=== PATIENT | male | born 1955 | race Caucasian/White ===

== ENCOUNTER 2018-10-08 21:20 | Emergency (ER) | payer OTHER ==
[~2018-10-08] VITALS: Wt 68.2 kg
[~2018-10-08 21:20] MED LIST: BENZ2TAB7 PO; HYDR-3980 PO; LEVO500T10 PO; PHEN-538 PO
[2018-10-08] MEDS ORDERED: KETOROLAC 15 MG INJ IV STA (22:52)
[2018-10-08] MEDS ORDERED: SOD CHLORIDE 0.9% 1,000 ML IV STA (22:52)
[2018-10-08] MEDS ORDERED: DIAZEPAM 5 MG/ML SYG IV ONE (23:00)
--- NOTE | 2018-10-09 02:04 | ERD ---
ER Documentation Chief Complaint Chief Complaint WEAKNESS/ PAIN IN LEFT LEG X'S 1 DAY HPI This is a 62-year-old male with a past medical history of hyperlipidemia, schizophrenia, tobacco abuse, chronic ambulatory dysfunction for which he is supposed to utilize a walker but instead utilizes a cane, frequent falls who is presenting this evening with cramping and spasm of his left lower extremity, beginning this afternoon. According to the patient's family, the patient does not take care of himself. He has a poor appetite. He drinks 4 cups of coffee a day. He does not drink water. He smokes half a pack to a pack of cigarettes daily. Over the last month, the patient has seemed more fatigued than usual per the family. The patient does not endorse this to, but the family notes that he is stubborn. He initially did not want to come to the emergency department, but he ultimately agreed when he was not able to resolve the spasm at home on his own. The patient denies feeling sick recently. The patient denies fever or chills. The patient has had no headache or vision changes. The patient does not endorse neck or back pain. The patient denies lightheadedness or dizziness. The patient has had no chest pain or trouble breathing. The patient denies nausea or vomiting. The patient denies abdominal pain. The patient denies changes to bowel movements or urination. The patient has had no focal deficits. The patient has had no weakness or numbness or tingling to the face or extremities. ROS All systems reviewed and are negative except as per history of present illness. Medications Home Meds Active Scripts Levofloxacin* (Levofloxacin*) 500 Mg Tablet, 500 MG PO DAILY for UTI, sepsis , #10 TAB Prov:BETH HAWTHORNE MD 06/19/16 Phenazopyridine Hcl* (Pyridium*) 200 Mg Tab, 200 MG PO TID PRN for URINARY PAIN, #6 TAB Prov:TORIBIO MEDINA PA-C 06/16/16 Hydrocodone/Acetaminophen ([place] 10-325 Tablet) 1 Each Tablet, 1 TAB PO Q6H PRN for PAIN, #12 TAB Prov:TORIBIO MEDINA PA-C 06/16/16 Reported Medications Benztropine Mesylate* (Benztropine Mesylate*) 2 Mg Tablet, 2 MG PO BID, TAB 06/18/16 Allergies Allergies: Coded Allergies: No Known Allergy (Unverified , 06/17/16) PMhx/Soc History of Surgery: No Anesthesia Reaction: No Hx Neurological Disorder: No Hx Respiratory Disorders: No Hx Cardiac Disorders: Yes (Hyperlipidemia) Hx Psychiatric Problems: Yes (Schizophrenia) Hx Miscellaneous Medical Probl: No Hx Alcohol Use: No Hx Substance Use: No Hx Tobacco Use: Yes Smoking Status: Current every day smoker FmHx Family History: No diabetes Physical Exam Vitals Vital Signs Date Temp Pulse Resp B/P (MAP) Pulse Ox O2 O2 Flow FiO2 Time Delivery Rate 10/09/18 102 18 168/96 98 Room Air 00:38 (120) 10/09/18 102 20 156/92 98 Room Air 00:15 (113) 10/08/18 105 22 156/95 98 Room Air 22:15 (115) 10/08/18 98.2 105 18 174/95 99 21:29 (121) Physical Exam Const: No apparent distress, well-developed, well-nourished Head: Normocephalic, Atraumatic Eyes: Normal Conjunctiva. Extraocular movements intact. Pupils equal, round and reactive to light ENT: Normal External Ears, Nose and Mouth. Neck: Full range of motion. No meningismus. Resp: Clear to auscultation bilaterally, No wheezes, rales or rhonchi Cardio: Regular rate and rhythm. No murmurs, rubs or gallops Abd: Soft, non tender, non distended. Normal bowel sounds Skin: No petechiae or rashes Back: No midline tenderness. No CVA tenderness Ext: No cyanosis, or edema. Intermittent left lower extremity cramping/spasm. Neur: Awake and alert, oriented 4. Cranial nerves intact. No facial droop. Normal strength, sensation and coordination. Psych: Normal Mood and Affect Result Diagram: 10/08/18 23010/08/18 230 Results 24 hrs Laboratory Tests Test 10/08/18 23:05 10/09/18 00:05 White Blood Count 8.8 10^3/ul Red Blood Count 3.55 10^6/ul Hemoglobin 11.3 g/dl Hematocrit 32.7 % Mean Corpuscular Volume 92.1 fl Mean Corpuscular Hemoglobin 31.8 pg Mean Corpuscular Hemoglobin Concent 34.6 g/dl Red Cell Distribution Width 12.3 % Platelet Count 256 10^3/UL Mean Platelet Volume 9.6 fl Immature Granulocytes % 0.500 % Neutrophils % 64.5 % Lymphocytes % 23.4 % Monocytes % 9.6 % Eosinophils % 1.7 % Basophils % 0.3 % Nucleated Red Blood Cells % 0.0 /100WBC Immature Granulocytes # 0.040 10^3/ul Neutrophils # 5.6 10^3/ul Lymphocytes # 2.1 10^3/ul Monocytes # 0.8 10^3/ul Eosinophils # 0.2 10^3/ul Basophils # 0.0 10^3/ul Nucleated Red Blood Cells # 0.0 10^3/ul Prothrombin Time 12.4 Sec Prothrombin Time Ratio 1.0 INR International Normalized Ratio 0.91 Sodium Level 133 mmol/L Potassium Level 3.3 mmol/L Chloride Level 96 mmol/L Carbon Dioxide Level 30 mmol/L Anion Gap 7 Blood Urea Nitrogen 16 mg/dl Creatinine 0.84 mg/dl Est Glomerular Filtrat Rate mL/min > 60 mL/min Glucose Level 119 mg/dl Calcium Level 9.1 mg/dl Troponin I < 0.012 ng/ml Urine Color STRAW Urine Clarity CLEAR Urine pH 7.0 Urine Specific [place] 1.004 Urine Ketones NEGATIVE mg/dL Urine Nitrite NEGATIVE mg/dL Urine Bilirubin NEGATIVE mg/dL Urine Urobilinogen NEGATIVE mg/dL Urine Leukocyte Esterase NEGATIVE Josh/ul Urine Microscopic RBC 15 /HPF Urine Microscopic WBC 1 /HPF Urine Hemoglobin 2+ mg/dL Urine Glucose NEGATIVE mg/dL Urine Total Protein NEGATIVE mg/dl Current Medications Medications Dose Sig/Bashir Start Time Status Last (Trade) Ordered Route PRN Stop Time Admin Dose Reason Admin Sodium 1,000 ml @ Q1H STAT 10/08/18 DC 10/08/18 Chloride 1,000 mls/hr IV 22:52 23:00 10/08/18 23:51 Ketorolac 15 mg ONCE STAT 10/08/18 DC 10/08/18 Tromethamine IV 22:52 23:00 (Toradol) 10/08/18 22:55 Diazepam 5 mg ONCE ONCE 10/08/18 DC 10/08/18 (Valium) IV 23:00 22:59 10/08/18 23:01 Procedures/MDM MDM The patient's presentation warrants further investigation. Previous medical records, if available, were reviewed. LABS The patient's laboratory testing was obtained and reviewed. No emergent treatment was required unless described below. CBC: No E/o of systemic infection or thrombocytopenia. Normocytic anemia, nonemergent. BMP: No E/o severe acidosis or alkalosis or renal failure or diabetic ketoac idosis. Mild hyponatremia and hypokalemia, nonemergent. PT/INR: No E/o significant coagulopathy Troponin: No E/o acute ischemia Urine: No E/o acute infection. + Hematuria EKG EKG read by me: Rate/Rhythm: Regular rate and rhythm at a rate of 94 bpm Intervals: Normal [place]: Normal Impression: No evidence of acute ischemia or arrhythmia IMAGING Imaging and Radiology interpretation reviewed. CXR FINDINGS: LUNGS: No consolidative pulmonary infiltrates noted. PLEURAL SPACE: Unremarkable. No pneumothorax. HEART: Unremarkable. No cardiomegaly. MEDIASTINUM: Unremarkable. BONES/JOINTS: Degenerative spine changes are noted. IMPRESSION: 1. No consolidative pulmonary infiltrates noted. 2. There is no significant interval change from the previous study. Electronically viewed and signed by Yanni Caba Physician Pnp on 10/09/2018 00:13 CT Head FINDINGS: LIMITATIONS: The study is limited by mild patient motion artifact. BRAIN: Unremarkable. No hemorrhage. No significant white matter disease. No edema. VENTRICLES: Unremarkable. No ventriculomegaly. BONES/JOINTS: Unremarkable. No acute fracture. SOFT TISSUES: Unremarkable. SINUSES: Unremarkable as visualized. No acute sinusitis. MASTOID AIR CELLS: Unremarkable as visualized. No mastoid effusion. IMPRESSION: 1. The study is limited by mild patient motion artifact. 2. No acute intracranial abnormality demonstrated. Electronically viewed and signed by Yanni Caba Physician Pnp on 10/09/2018 00:16 TREATMENT/DISPOSITION The patient's presenting with exacerbation of chronic symptoms. The patient is on multiple medications and polypharmacy could certainly be related to today. That said, the patient does appear to be of sound mind. His primary complaint is spasming of the left lower extremity. The patient does appear dehydrated clinically. The patient was given IV fluids in the emergency department. For the pain and spasm specifically, the patient was given 15 mg of Toradol in addition to 5 mg of diazepam. The patient's symptoms significantly improved after treatment. The patient also endorses general fatigue. The acuity of his fatigue is unclear. The patient has a reassuring physical exam. The patient is not clinically orthostatic. The patient is not dizzy. I have decreased suspicion for vertigo. The patient has no signs of emergent or symptomatic anemia. The patient does have a mild hyponatremia and hypokalemia, but there are no emergent abnormalities. I have low suspicion for either of these findings to be the etiology of his symptoms today. I have decrease suspicion for a thyroid disorder. The patient is not toxic appearing. I have decreased suspicion for an infectious etiology of symptoms. The patient's EKG and troponin are reassuring. I have low suspicion for acute coronary syndrome. I do not see evidence of any emergent cardiac arrhythmia, which includes but is not limited to heart block, Brugada syndrome or WPW. The patient has no heart murmurs or rales. There is no evidence of cardiomegaly on exam or chest xray. I have low suspicion for hypertrophic cardiomyopathy. I do not see evidence of CHF. The patient does not endorse any chest or pleuritic pain. The history is negative for bleeding or clotting disorders. The patient has not been involved in any recent prolonged trips or surgeries or hospi talizations. The patient has no calf tenderness or swelling. I have decreased suspicion for PE as the etiology of symptoms. The patient has no focal deficits. The neurologic exam is reassuring. I have decreased suspicion for cerebral ischemia. There was no trauma or injury. There is no personal or family history of cerebral aneurysm. I have decreased suspicion for SAH or other ICH. I have low suspicion for temporal arteritis, cavernous venous thrombosis, subdural hematoma, epidural hematoma, meningitis. Unfortunately, the patient does have difficulty walking at baseline. He is supposed to use a walker, but he typically refuses and only utilizes a cane. While walking to the bathroom, the patient's knees buckled and he had a ground- level fall. The patient had no serious injury. The patient was reassessed. He did not hit his head. I do not feel that further diagnostic testing is re quired. I highly recommended that the patient utilize his walker at home. The patient was ambulatory after this incident without significant difficulty. The patient was found to have hematuria. The patient does not have flank pain. I have low suspicion for nephrolithiasis. This may be worked up further in an outpatient setting. Upon reevaluation of the patient, symptoms have improved. No emergent diagnoses were identified. At this time, I feel that the patient stable for discharge. The patient was instructed to follow-up with a primary care physician in 1-3 days. The patient will be given strict precautions with which to return to the emergency department. Prescriptions: None The patient's blood pressure was elevated at greater than 120/80 while in the emergency department. The patient was otherwise stable with no evidence of hypertensive urgency or emergency. The patient does not require admission for blood pressure control. I have discussed with the patient the risks of hypertension. I have instructed the patient to return to the ER for any new or worsening symptoms including chest pain, shortness of breath, headache, blurred vision, confusion, nausea, vomiting or LOC. I have advised the patient to follow up with the primary care physician for outpatient monitoring and treatment for hypertension in 1-3 days. Disclaimer: Inadvertent spelling and grammatical errors are likely due to EHR/dictation software use and do not reflect on the overall quality of patient care. Note that the electronic time recorded on this note does not necessarily reflect the actual time of the patient encounter. Departure Diagnosis: Primary Impression: Muscle spasm Additional Impressions: Chronic fatigue Ambulatory dysfunction Normocytic anemia Hypokalemia Hyponatremia Hematuria Hematuria type: unspecified type Qualified Codes: R31.9 - Hematuria, unspecified Condition: Stable ZOILA DE LA TORRE MD Oct 09, 2018 01:26
[2018-10-09 02:20] VITALS: BP 145/91; PULSE 82; RESP 20
== END 2018-10-09 02:30 | disposition home or self-care (01) ==
LOC: E/R 21:20
DX: M62.838 Other muscle spasm (principal); R53.82 Chronic fatigue, unspecified; D64.9 Anemia, unspecified; R26.2 Difficulty in walking, not elsewhere classified; E87.6 Hypokalemia; E87.1 Hypo-osmolality and hyponatremia; H31.9 Unspecified disorder of choroid; R40.2142 Coma scale, eyes open, spontaneous, at arrival to emergency department; R40.2362 Coma scale, best motor response, obeys commands, at arrival to emergency department; R40.2252 Coma scale, best verbal response, oriented, at arrival to emergency department; F17.210 Nicotine dependence, cigarettes, uncomplicated; R93.0 Abnormal findings on diagnostic imaging of skull and head, not elsewhere classified; M79.605 Pain in left leg
CPT/HCPCS: 36415; 70450; 71045; 80048; 81001; 84484; 85025; 85610; 93005; 96374; 96375; J1885; J3360; J7030; Z7502; Z7610

== ENCOUNTER 2018-10-31 21:36 | Inpatient (IN) | payer OTHER ==
[~2018-10-31] VITALS: Ht 180.3 cm; Wt 81.8 kg
[2018-10-31 21:50] VITALS: Ht 180.3 cm; Wt 81.8 kg
[2018-10-31] MEDS ORDERED: SOD CHLORIDE 0.9% 500 ML IV STA (22:04)
[2018-10-31] MEDS ORDERED: ATOR20TA65 PO (23:58)
[2018-10-31] MEDS ORDERED: IBUP-1542 PO (23:58)
[2018-10-31] MEDS ORDERED: ASPI-817 PO (23:58)
[2018-11-01] MEDS ORDERED: LORAZEPAM 2 MG INJ IV STA (03:04)
--- NOTE | 2018-11-01 03:58 | ERD ---
ER Documentation Chief Complaint Chief Complaint BIB RA881 from home,gen weakness for months,hx schizo,amb w/ walker HPI This is a 63-year-old male brought in from home for generalized weakness has been getting progressively worse. Apparently over the past few days being very very weak and he feels like he does not have the strength to get out of bed. He denies any focal neurological complaints. He normally ambulates with a walker but says that they have not proven difficult. Denies any fevers or chills. Denies any other current issues. ROS All systems reviewed and are negative except as per history of present illness. Medications Home Meds Reported Medications Aspirin* (Aspirin* EC) 81 Mg Tablet.dr, 81 MG PO DAILY for 90 Days, #90 10/31/18 Ibuprofen* (Ibuprofen*) 600 Mg Tablet, 600 MG PO Q6H PRN for PAIN LEVEL 6-10, TAB 10/31/18 Atorvastatin Calcium (Atorvastatin Calcium) 20 Mg Tablet, 20 MG PO QHS for 90 Days, #90 10/31/18 Discontinued Reported Medications Benztropine Mesylate* (Benztropine Mesylate*) 2 Mg Tablet, 2 MG PO BID, TAB 06/18/16 Discontinued Scripts Levofloxacin* (Levofloxacin*) 500 Mg Tablet, 500 MG PO DAILY for UTI, sepsis , #10 TAB Prov:BETH HAWTHORNE MD 06/19/16 Phenazopyridine Hcl* (Pyridium*) 200 Mg Tab, 200 MG PO TID PRN for URINARY PAIN, #6 TAB Prov:TORIBIO MEDINA PA-C 06/16/16 Hydrocodone/Acetaminophen ([place] 10-325 Tablet) 1 Each Tablet, 1 TAB PO Q6H PRN for PAIN, #12 TAB Prov:TORIBIO MEDINA PA-C 06/16/16 Allergies Allergies: Coded Allergies: No Known Allergy (Unverified , 10/31/18) PMhx/Soc History of Surgery: No Anesthesia Reaction: No Hx Neurological Disorder: No Hx Respiratory Disorders: No Hx Cardiac Disorders: Yes (Hyperlipidemia) Hx Psychiatric Problems: Yes (Schizophrenia) Hx Miscellaneous Medical Probl: No Hx Alcohol Use: No Hx Substance Use: No Hx Tobacco Use: Yes Smoking Status: Current every day smoker Physical Exam Vitals Vital Signs Date Temp Pulse Resp B/P (MAP) Pulse Ox O2 O2 Flow FiO2 Time Delivery Rate 11/01/18 98.1 92 18 148/95 97 Room Air 03:15 (112) 11/01/18 98.1 82 24 147/89 97 Room Air 02:00 (108) 11/01/18 98.1 82 17 155/96 99 Room Air 00:00 (115) 10/31/18 98.1 86 18 160/93 97 21:50 (115) 10/31/18 98.1 92 18 160/93 97 Room Air 21:50 (115) Physical Exam Const: No acute distress Head: Atraumatic Eyes: Normal Conjunctiva ENT: Normal External Ears, Nose and Mouth. Neck: Full range of motion. No meningismus. Resp: Clear to auscultation bilaterally Cardio: Regular rate and rhythm, no murmurs Abd: Soft, non tender, non distended. Normal bowel sounds Skin: No petechiae or rashes Back: No midline or flank tenderness Ext: No cyanosis, or edema Neur: Awake and alert Psych: Normal Mood and Affect Result Diagram: 10/31/18225010/31/182250 Results 24 hrs Laboratory Tests Test 10/31/18 22:51 White Blood Count 9.9 10^3/ul Red Blood Count 3.66 10^6/ul Hemoglobin 11.6 g/dl Hematocrit 33.8 % Mean Corpuscular Volume 92.3 fl Mean Corpuscular Hemoglobin 31.7 pg Mean Corpuscular Hemoglobin Concent 34.3 g/dl Red Cell Distribution Width 12.4 % Platelet Count 239 10^3/UL Mean Platelet Volume 9.2 fl Immature Granulocytes % 0.400 % Neutrophils % 61.8 % Lymphocytes % 25.0 % Monocytes % 10.0 % Eosinophils % 2.3 % Basophils % 0.5 % Nucleated Red Blood Cells % 0.0 /100WBC Immature Granulocytes # 0.040 10^3/ul Neutrophils # 6.1 10^3/ul Lymphocytes # 2.5 10^3/ul Monocytes # 1.0 10^3/ul Eosinophils # 0.2 10^3/ul Basophils # 0.1 10^3/ul Nucleated Red Blood Cells # 0.0 10^3/ul Prothrombin Time 12.2 Sec Prothrombin Time Ratio 1.0 INR International Normalized Ratio 0.89 Activated Partial Thromboplast Time 36.1 Sec Sodium Level 137 mmol/L Potassium Level 3.4 mmol/L Chloride Level 98 mmol/L Carbon Dioxide Level 28 mmol/L Anion Gap 11 Blood Urea Nitrogen 7 mg/dl Creatinine 0.69 mg/dl Est Glomerular Filtrat Rate mL/min > 60 mL/min Glucose Level 104 mg/dl Calcium Level 8.9 mg/dl Troponin I < 0.012 ng/ml Current Medications Medications Dose Sig/Bashir Start Time Status Last (Trade) Ordered Route PRN Stop Time Admin Dose Reason Admin Sodium 500 ml @ Q1H STAT 10/31/18 DC 10/31/18 Chloride 500 mls/hr IV 22:04 22:30 10/31/18 23:03 Lorazepam 1 mg ONCE STAT 11/01/18 DC 11/01/18 (Ativan) IV 03:04 03:10 11/01/18 03:05 Procedures/MDM Emergency department course: Patient seen and evaluated triage nurse. Placed in bed from evaluation as a cardiac workup. Had a stat head CT. Serial exams remained stable. Diagnostic data: EKG: Rate/Rhythm: [Normal Sinus Rhythm] QRS, ST, T-waves: [No changes consistent w/ acute ischemia] Impression: [No evidence of ischemia or arrhythmia] Chest X-ray 1V Interpreted by me: Soft Tissue: No acute abnormalities Bones: No acute abnormalities Mediastinum/Cardiac Silhouette/Lungs: [No acute abnormalities] Medical decision making: This is a 63-year-old male comes in with generalized weakness. Although he is nonfocal neurologically, given his severe debilitation, patient will be admitted for further evaluation and management. Dr. Mckee of [facility] is on-call and has been notified of the patient's admission. Departure Diagnosis: Primary Impression: Acute weakness Condition: RANDALL Cowan Nov 01, 2018 03:58
--- NOTE | 2018-11-01 14:25 | QN ---
Documentation Comment seen and examined COURTNEY HORTON MD Nov 01, 2018 14:25
[2018-11-01] MEDS ORDERED: ACETAMINOPHEN 325 MG TAB PO PRN (14:30)
[2018-11-01] MEDS ORDERED: NACL 0.9% 3 ML SYG IV SCH (14:30)
[2018-11-01] MEDS ORDERED: DOCUSATE SODIUM 100 MG CAP PO PRN (14:30)
[2018-11-01] MEDS ORDERED: ONDANSETRON 4 MG INJ IV PRN (14:30)
--- NOTE | 2018-11-01 15:37 | HP ---
DATE OF ADMISSION: 10/31/2018 REASON FOR ADMISSION: Brought in from home, generalized weakness for months, worsening for past 1 mo [facility]. HISTORY OF PRESENT ILLNESS: This is a 63-year-old male with a past medical history of schizophrenia, history of chronic ambulatory dysfunction, history of hypertension, who lives at home with his brittny hook. According to the mother, patient has been complaining of some spasm and weakness of the left arm. Lately, patient had been falling a lot. The minute he gets up he falls. 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 He also has history of schizophrenia and receive s monthly injection with psychiatry as an outpatient. Patient had no headache, no dizziness, sometim es has neck pain and was brought in to the Emergency Department for further evaluation. He normally ambulates with a walker but has been having difficulties recently. On arrival to ED, vital signs adeola wed a temperature 98.1, pulse 92, respirations 18, initial blood pressure 160/93, saturating 97%. Po tassium was 3.4, BUN of 7, creatinine 0.69. White count 9.9, hemoglobin 11.6, platelet count 239. P atient was given EKG, showed normal sinus rhythm. Patient also had CT of the head which was pending and was admitted for further management. PAST MEDICAL HISTORY: 1. Schizophrenia. 2. Hypertension. 3. History of chronic ambulatory dysfunction. 4. Hypercholesterolemia. ALLERGIES: None. PAST SURGICAL HISTORY: According to the mom, the patient had spine surgeries x2, status post fall. SOCIAL HISTORY: He is a chronic smoker, smokes 20 cigarettes per day. Denies any alcohol or any rec reational drug use. Currently lives at home with mom, but however, need help in all his daily living . MEDICATIONS TAKING AT HOME: 1. Atorvastatin 20. 2. Aspirin 81. 3. Ibuprofen 600 mg p.o. q.6 p.r.n. pain. FAMILY HISTORY: Noncontributory. REVIEW OF SYSTEMS: The patient is a very limited historian, states that he has spasm on the left arm . Denied any headache, any nausea, vomiting, diarrhea, any chest pain, any shortness of breath, any hematemesis, any melena, any blood per rectum. Denies any other complaints except for falling. PHYSICAL EXAMINATION: VITAL SIGNS: Blood pressure 148/95, temperature 98.1, pulse 92, saturating 97% on room air. GENERAL: The patient is well-developed male, does not appear to be in any acute distress. NECK: Supple, no JVD. HEART: Regular rate and rhythm. LUNGS: Clear to auscultate bilaterally. ABDOMEN: Soft, nontender, nondistended, positive normoactive bowel sounds. EXTREMITIES: No local clubbing, cyanosis or edema. SKIN: However, patient has multiple bruises present in the arms and legs. The patient also has a ri ght knee abrasion status post fall, some knee swelling noted on bilateral knees. DIAGNOSTIC DATA: Potassium of 3.4. Troponin less than 0.012. LABORATORY DATA: White count is 9.9, hemoglobin 11.6, platelet count 239. EKG: No acute ST-T wave changes. The patient had a CT of the brain on 10/08/2018, which was negative; however, the repeat CA T scan is pending. ASSESSMENT AND PLAN: This is a 63-year-old male who presented with: 1. Multiple falls with some left side arm muscle spasm. Need to rule out if there is any spinal dis ease/past concerns or patient's history and exam is somewhat limited due to his history of schizophre osmin and being a poor historian. 2. History of schizophrenia. 3. Mild hypokalemia. 4. Arthritis. 5. Hypertension. 6. Hyperlipidemia. PLAN: At this period of time, the patient is admitted to med-surg. We will check orthostatics. We will check a CT of the C-spine. Neurology consultation has been obtained. Patient will also need a PT eval. Rest of the treatment will depend on the patient's hospitalization course. Dictated By: COURTNEY MCCARTHY/KAIN Conf#: [id number] DID#: [id number]
--- NOTE | 2018-11-01 17:23 | CONS ---
Assessment/Plan Assessment/Plan Hospital Course 63 yo M with hx of gait instability and other comorbidities who presents for evaluation of lower extremity weakness, for which neurology is consulted. Most ominously concerning for a thoracic myelopathy. A lumbosacral radiculopathy is additionally considered. P: MRI T/L spine without contrast for further characterization Consider neurosurgery evaluation pending the above. Other medical management per primary Will follow clinically Consultation Date/Type/Reason Admit Date/Time Type of Consult Neurology Reason for Consultation repeated falls, myelopathy Requesting Provider: COURTNEY HORTON MD Date/Time of Note DATE: 11/01/18 TIME: 17:23 Hx of Present Illness 63 yo M with hx of schizophrenia, chronic gait dysfunction and other comorbidities who presented to the ED for evaluation of lower extremity weakness. History was obtained from pt and chart review. The pt states that he's had progressive weakness x 1 month with repeated falls. He states that he normally ambulates with assistive devices at home, but continues to fall despite using them. He also states that his LLE is weaker than his right. It is additionally elsewhere noted: HISTORY OF PRESENT ILLNESS: This is a 63-year-old male with a past medical history of schizophrenia, history of chronic ambulatory dysfunction, history of hypertension, who lives at home with his mother. According to the mother, patient has been complaining of some spasm and weakness of the left arm. Late ly, patient had been falling a lot. The minute he gets up he falls. 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 He also has history of schizophrenia and receives monthly injection with psychiatry as an outpatient. Patient had no headache, no dizziness, sometimes has neck pain and was brought in to the Emergency Department for further evaluation. He normally ambulates with a walker but has been having difficulties recently. On arrival to ED, vital signs showed a temperature 98.1, pulse 92, respirations 18, initial blood pressure 160/93, saturating 97%. Potassium was 3.4, BUN of 7, creatinine 0.69. White count 9.9, hemoglobin 11.6, platelet count 239. Patient was given EKG, showed normal sinus rhythm. Patient also had CT of the head which was pending and was admitted for further management. negative unless noted otherwise in HPI Exam/Review of Systems Exam Vitals Vital Signs Date Temp Pulse Resp B/P (MAP) Pulse Ox O2 O2 Flow FiO2 Time Delivery Rate 11/01/18 98.2 74 18 157/89 98 Room Air 16:25 (111) Exam PE: Gen Appearance: No Apparent Distress HEENT: Normocephalic Cardiovascular: Regular rate Lungs: Clear bilaterally Abdomen: Soft Extremities: Dry NE: The patient was alert and grossly oriented. Language was normal. Fund of knowledge was normal. Pupils were equal and reactive to light. There was no afferent pupillary defect. Visual barillas were normal. Funduscopic examination was limited. Extra-ocular movements were full. Ptosis was absent. There was no nystagmus. Facial sensation was normal. Face was symmetric with normal strength. Hearing was intact. Palate movements were normal. Neck strength was normal. There was normal tongue bulk and speed of movement. Tone was normal. Muscle bulk was normal. I did not see fasciculations. Arms were strong in the UE, symmetrically. Hip flexors were weak symmetrically; flexion/extension of lower extremities plantar flexion/dorsiflexion of the ankles were weak (L>R). Vibration sensation was normal. Temperature and pinprick sensation was normal. Rapid alternating movements were normal. There was no dysmetria. There was no intention tremor. Gait was deferred due to bedrest. Arm reflexes were 2+ and symmetric; leg reflexes were brisk on the LLE. Mackenzie's sign was absent. Plantar responses were flexor. Results Result Diagram: 10/31/18225010/31/182250 Results 24hrs Laboratory Tests Test 10/31/18 22:51 11/01/18 09:38 White Blood Count 9.9 Red Blood Count 3.66 L Hemoglobin 11.6 L Hematocrit 33.8 L Mean Corpuscular Volume 92.3 Mean Corpuscular Hemoglobin 31.7 Mean Corpuscular Hemoglobin Concent 34.3 Red Cell Distribution Width 12.4 Platelet Count 239 Mean Platelet Volume 9.2 Immature Granulocytes % 0.400 Neutrophils % 61.8 Lymphocytes % 25.0 Monocytes % 10.0 Eosinophils % 2.3 Basophils % 0.5 Nucleated Red Blood Cells % 0.0 Immature Granulocytes # 0.040 H Neutrophils # 6.1 Lymphocytes # 2.5 Monocytes # 1.0 H Eosinophils # 0.2 Basophils # 0.1 Nucleated Red Blood Cells # 0.0 Prothrombin Time 12.2 Prothrombin Time Ratio 1.0 INR International Normalized Ratio 0.89 Activated Partial Thromboplast Time 36.1 H Sodium Level 137 Potassium Level 3.4 L Chloride Level 98 Carbon Dioxide Level 28 Anion Gap 11 Blood Urea Nitrogen 7 Creatinine 0.69 Est Glomerular Filtrat Rate mL/min > 60 Glucose Level 104 Calcium Level 8.9 Troponin I < 0.012 Lab Scanned Report LAB Imaging Imaging CT C spine: IMPRESSION: 1. No acute fracture identified. 2. Multilevel degenerative disc and facet disease, with moderate to severe disc height loss at C5-C6 and moderate at C6-C7. 3. Multilevel disc osteophyte complexes resulting in multilevel spinal canal stenosis, likely moderate and C3-C4, severe at C4-C5, moderate to severe at C5- C6, and moderate at C6-C7. 4. Multilevel uncovertebral joint spurring and facet arthropathy resulting in significant multilevel neural foraminal narrowing, severe bilaterally at C5-C6, severe right and moderate to severe left at C6-C7, moderate to severe left and at least moderate right at C4-C5. Additional levels as above. 5. MRI may be obtained for further evaluation if not contraindicated. Medications Medication Current Medications IV Flush (NS 3 ml) 3 ml PER PROTOCOL IV ; Start 11/01/18 at 14:30 Ondansetron HCl (Zofran Inj) 4 mg Q6H PRN IV NAUSEA/VOMITING; Start 11/01/18 at 14:30 Acetaminophen (Tylenol Tab) 650 mg Q6H PRN PO .PAIN 1-3 OR TEMP; Start 11/01/18 at 14:30 Acetaminophen/ Hydrocodone Bitart ([place] (5/325)) 1 tab Q6H PRN PO .MOD PAIN 4- 6; Start 11/01/18 at 14:30 Docusate Sodium (Colace) 100 mg Q12H PRN PO .CONSTIPATION; Start 11/01/18 at 14:30 Enoxaparin Sodium (Lovenox) 40 mg DAILY SC ; Start 11/02/18 at 09:00 Aspirin (Halfprin) 81 mg DAILY PO ; Start 11/02/18 at 09:00 Atorvastatin Calcium (Lipitor) 20 mg QHS PO ; Start 11/01/18 at 21:00 Past Medical History reviewed Home Meds Reported Medications Aspirin* (Aspirin* EC) 81 Mg Tablet.dr, 81 MG PO DAILY for 90 Days, #90 3/18/19 Ibuprofen* (Ibuprofen*) 600 Mg Tablet, 600 MG PO Q6H PRN for PAIN LEVEL 6-10, TAB 10/31/18 Atorvastatin Calcium (Atorvastatin Calcium) 20 Mg Tablet, 20 MG PO QHS for 90 Days, #90 10/31/18 Discontinued Reported Medications Benztropine Mesylate* (Benztropine Mesylate*) 2 Mg Tablet, 2 MG PO BID, TAB 06/18/16 Discontinued Scripts Levofloxacin* (Levofloxacin*) 500 Mg Tablet, 500 MG PO DAILY for UTI, sepsis , #10 TAB Prov:BETH HAWTHORNE MD 06/19/16 Phenazopyridine Hcl* (Pyridium*) 200 Mg Tab, 200 MG PO TID PRN for URINARY PAIN, #6 TAB Prov:TORIBIO MEDINA PA-C 06/16/16 Hydrocodone/Acetaminophen ([place] 10-325 Tablet) 1 Each Tablet, 1 TAB PO Q6H PRN for PAIN, #12 TAB Prov:TORIBIO MEDINA PA-C 06/16/16 Medications Current Medications IV Flush (NS 3 ml) 3 ml PER PROTOCOL IV ; Start 11/01/18 at 14:30 Ondansetron HCl (Zofran Inj) 4 mg Q6H PRN IV NAUSEA/VOMITING; Start 11/01/18 at 14:30 Acetaminophen (Tylenol Tab) 650 mg Q6H PRN PO .PAIN 1-3 OR TEMP; Start 11/01/18 at 14:30 Acetaminophen/ Hydrocodone Bitart ([place] (5/325)) 1 tab Q6H PRN PO .MOD PAIN 4- 6; Start 11/01/18 at 14:30 Docusate Sodium (Colace) 100 mg Q12H PRN PO .CONSTIPATION; Start 11/01/18 at 14:30 Enoxaparin Sodium (Lovenox) 40 mg DAILY SC ; Start 11/02/18 at 09:00 Aspirin (Halfprin) 81 mg DAILY PO ; Start 11/02/18 at 09:00 Atorvastatin Calcium (Lipitor) 20 mg QHS PO ; Start 11/01/18 at 21:00 Allergies: Coded Allergies: No Known Allergy (Unverified , 10/31/18) Past Surgical History reviewed Social History reviewed Smoking Status: Current every day smoker MY RUCKER NP Nov 01, 2018 17:23 OSCAR MCCLELLAND Nov 01, 2018 19:37
[2018-11-01 17:50] VITALS: BP 167/82; PULSE 62; RESP 20
[2018-11-01 19:28] VITALS: BP 155/92; PULSE 90; RESP 18
[2018-11-01] MEDS: ATORVASTATIN 20 MG TAB PO SCH (20:24)
[2018-11-01] MEDS: HYDROCODONE/APAP (5/325) TAB PO PRN (20:24)
[2018-11-02 07:19] VITALS: BP 157/87; PULSE 98; RESP 16
[2018-11-02] MEDS ORDERED: ENOXAPARIN 40 MG/0.4 ML SYG SC SCH (09:00)
[2018-11-02] MEDS ORDERED: ASPIRIN (EC) 81 MG TAB PO SCH (09:00)
[2018-11-02] MEDS ORDERED: POTASSIUM CHLORIDE (SR) 20 MEQ TAB PO STA (13:24)
[2018-11-02 13:51] VITALS: BP 164/81; PULSE 95; RESP 16
[2018-11-02] MEDS ORDERED: LORAZEPAM 2 MG INJ IV ONE (14:00)
--- NOTE | 2018-11-02 14:08 | PN ---
Date/Time of Note Date/Time of Note DATE: 11/02/18 TIME: 14:02 Assessment/Plan VTE Prophylaxis Risk score (from Ns)>0 risk: 3 SCD applied (from Ns): No SCD contraindicated: low risk/ambulating Pharmacological prophylaxis: NA/contraindicated Pharm contraindication: low risk/ambulating Lines/Catheters IV [facility]from [facility]): Saline Lock Assessment/Plan Hospital Course 63-year-old male who presented with: 1. Multiple falls with some left side arm muscle spasm. Need to rule out if there is any spinal disease/past concerns or patient's history and exam is somewhat limited due to his history of schizophrenia and being a poor historian. 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 A lumbosacral radiculopathy is additionally considered 2. History of schizophrenia. 3. Mild hypokalemia. 4. Arthritis. 5. Hypertension. 6. Hyperlipidemia. Plan - MRI C/T/L spine - ativan prn - Dr Busby neurosurgery consulted - pain control - PT - Pscy consult - [facility] neuro recs - GI/DVT prophylaxsis Result Diagram: 11/02/1842711/02/188 Results 24hrs Laboratory Tests Test 11/01/18 17:55 11/01/18 21:50 11/02/18 04:28 Creatine Kinase 451 H 492 H Creatine Kinase Index 0.7 0.7 Creatinine Kinase MB (Mass) 3.34 H 3.67 H Troponin I < 0.012 < 0.012 White Blood Count 11.3 H Red Blood Count 3.92 L Hemoglobin 12.1 L Hematocrit 36.0 L Mean Corpuscular Volume 91.8 Mean Corpuscular Hemoglobin 30.9 Mean Corpuscular Hemoglobin Concent 33.6 Red Cell Distribution Width 12.7 Platelet Count 271 Mean Platelet Volume 9.6 Immature Granulocytes % 0.400 Neutrophils % 65.3 Lymphocytes % 23.1 Monocytes % 9.0 Eosinophils % 1.8 Basophils % 0.4 Nucleated Red Blood Cells % 0.0 Immature Granulocytes # 0.040 H Neutrophils # 7.4 Lymphocytes # 2.6 Monocytes # 1.0 H Eosinophils # 0.2 Basophils # 0.0 Nucleated Red Blood Cells # 0.0 Sodium Level 139 Potassium Level 3.0 L Chloride Level 95 L Carbon Dioxide Level 30 Anion Gap 14 H Blood Urea Nitrogen 12 Creatinine 0.74 Est Glomerular Filtrat Rate mL/min > 60 Glucose Level 97 Calcium Level 9.1 Phosphorus Level 4.6 Magnesium Level 1.9 Subjective 24 Hr Interval Summary Free Text/Dictation he did complain of lower back pain. Spoke to the family at bedside and answered all the questions Exam/Review of Systems Exam Vitals Vital Signs Date Temp Pulse Resp B/P (MAP) Pulse Ox O2 O2 Flow FiO2 Time Delivery Rate 11/02/18 98.6 95 16 164/81 98 13:51 (108) 11/01/18 Room Air 17:50 Intake and Output 11/01/18 11/01/18 11/02/18 1515:00 23:00 07:00 OutputOutput Total 500 ml BalanceBalance -500 ml Exam GENERAL: The patient is well-developed male, does not appear to be in any acute distress. NECK: Supple, no JVD. HEART: Regular rate and rhythm. LUNGS: Clear to auscultate bilaterally. ABDOMEN: Soft, nontender, nondistended, positive normoactive bowel sounds. EXTREMITIES: No local clubbing, cyanosis or edema. SKIN: However, patient has multiple bruises present in the arms and legs. The patient also has a right knee abrasion status post fall, some knee swelling noted on bilateral knees. Arm reflexes were 2+ and symmetric; leg reflexes were brisk on the LLE. Tone was normal. Muscle bulk was normal. Hip flexors were weak symmetrically Results Results 24hrs Laboratory Tests Test 11/01/18 17:55 11/01/18 21:50 11/02/18 04:28 Creatine Kinase 451 H 492 H Creatine Kinase Index 0.7 0.7 Creatinine Kinase MB (Mass) 3.34 H 3.67 H Troponin I < 0.012 < 0.012 White Blood Count 11.3 H Red Blood Count 3.92 L Hemoglobin 12.1 L Hematocrit 36.0 L Mean Corpuscular Volume 91.8 Mean Corpuscular Hemoglobin 30.9 Mean Corpuscular Hemoglobin Concent 33.6 Red Cell Distribution Width 12.7 Platelet Count 271 Mean Platelet Volume 9.6 Immature Granulocytes % 0.400 Neutrophils % 65.3 Lymphocytes % 23.1 Monocytes % 9.0 Eosinophils % 1.8 Basophils % 0.4 Nucleated Red Blood Cells % 0.0 Immature Granulocytes # 0.040 H Neutrophils # 7.4 Lymphocytes # 2.6 Monocytes # 1.0 H Eosinophils # 0.2 Basophils # 0.0 Nucleated Red Blood Cells # 0.0 Sodium Level 139 Potassium Level 3.0 L Chloride Level 95 L Carbon Dioxide Level 30 Anion Gap 14 H Blood Urea Nitrogen 12 Creatinine 0.74 Est Glomerular Filtrat Rate mL/min > 60 Glucose Level 97 Calcium Level 9.1 Phosphorus Level 4.6 Magnesium Level 1.9 Medications Medication Current Medications IV Flush (NS 3 ml) 3 ml PER PROTOCOL IV ; Start 11/01/18 at 14:30 Ondansetron HCl (Zofran Inj) 4 mg Q6H PRN IV NAUSEA/VOMITING; Start 11/01/18 at 14:30 Acetaminophen (Tylenol Tab) 650 mg Q6H PRN PO .PAIN 1-3 OR TEMP; Start 11/01/18 at 14:30 Acetaminophen/ Hydrocodone Bitart ([place] (5/325)) 1 tab Q6H PRN PO .MOD PAIN 4- 6 Last administered on 11/01/18at 20:24; Admin Dose 1 TAB; Start 11/01/18 at 14:30 Docusate Sodium (Colace) 100 mg Q12H PRN PO .CONSTIPATION; Start 11/01/18 at 14:30 Enoxaparin Sodium (Lovenox) 40 mg DAILY SC Last administered on 11/02/18at 08:27; Admin Dose 40 MG; Start 11/02/18 at 09:00 Aspirin (Halfprin) 81 mg DAILY PO Last administered on 11/02/18 08:24; Admin Dose 81 MG; Start 11/02/18 at 09:00 Atorvastatin Calcium (Lipitor) 20 mg QHS PO Last administered on 11/01/18 20:24; Admin Dose 20 MG; Start 11/01/18 at 21:00 COURTNEY HORTON MD Nov 02, 2018 14:07
[2018-11-02] MEDS: HYDROCODONE/APAP (5/325) TAB PO PRN ×2 (14:14→20:17)
--- NOTE | 2018-11-02 15:04 | CONS ---
Assessment/Plan Assessment/Plan Hospital Course 63 yo M with hx of gait instability and other comorbidities who presents for evaluation of lower extremity weakness, for which neurology is consulted. Most ominously concerning for a thoracic myelopathy. A lumbosacral radiculopathy is additionally considered. P: Await MRI T/L spine without contrast for further characterization Consider neurosurgery evaluation pending the above. Other medical management per primary Will follow clinically Consultation Date/Type/Reason Admit Date/Time Nov 01, 2018 at 02:46 Type of Consult Neurology Reason for Consultation repeated falls, myelopathy Requesting Provider: COURTNEY HORTON MD Date/Time of Note DATE: 11/02/18 TIME: 15:04 24 HR Interval Summary Free Text/Dictation Continues acute care. Pt continues to endorse weakness. Awaiting MRI T/L spine. Exam Vital Signs Vitals Vital Signs Date Temp Pulse Resp B/P (MAP) Pulse Ox O2 O2 Flow FiO2 Time Delivery Rate 11/02/18 98.6 95 16 164/81 98 13:51 (108) 11/01/18 Room Air 17:50 Intake and Output 11/01/18 11/01/18 11/02/18 1515:00 23:00 07:00 OutputOutput Total 500 ml BalanceBalance -500 ml Exam PE: Gen Appearance: No Apparent Distress HEENT: Normocephalic Cardiovascular: Regular rate Lungs: Clear bilaterally Abdomen: Soft Extremities: Dry NE: The patient was alert and grossly oriented. Language was normal. Fund of knowledge was normal. Pupils were equal and reactive to light. There was no afferent pupillary defect. Visual barillas were normal. Funduscopic examination was limited. Extra-ocular movements were full. Ptosis was absent. There was no nystagmus. Facial sensation was normal. Face was symmetric with normal strength. Hearing was intact. Palate movements were normal. Neck strength was normal. There was normal tongue bulk and speed of movement. Tone was normal. Muscle bulk was normal. I did not see fasciculations. Arms were strong in the UE, symmetrically. Hip flexors were weak symmetrically; fle xion/extension of lower extremities plantar flexion/dorsiflexion of the ankles were weak (L>R). Vibration sensation was normal. Temperature and pinprick sensation was normal. Rapid alternating movements were normal. There was no dysmetria. There was no i ntention tremor. Gait was deferred due to bedrest. Arm reflexes were 2+ and symmetric; leg reflexes were brisk on the LLE. Bel man's sign was absent. Plantar responses were flexor. MY RUCKER NP Nov 02, 2018 15:04
--- NOTE | 2018-11-02 15:39 | PSY ---
Date/Time of Note Date/Time of Note DATE: 11/02/18 TIME: 15:38 Psychiatric Subjective Eval Consent Pt consented to telemedicine: No Subjective Evaluation Chief Complaint: BIB RA881 from home,gen weakness for months,hx schizo,amb w/ walker History of present illness Patient is a 63-year-old male with a past medical history of hypertension, is alert with periods of disorganized thoughts. On a [id number] evaluation, patient is mumbling to himself responding to internal stimuli. He is Persian-speaking but able to communicate with some Italian. Patient is having a conversation with an unseen person. He denies suicidal ideation denies feeling of hopelessness denies homicidal ideation and contracted for safety Past psychiatric history Long history of mental illness Hospitalization: other Medical history Problems Medical Problems: (1) Acute cystitis Status: Acute (2) Acute weakness Status: Acute (3) Ambulatory dysfunction Status: Acute (4) Chronic fatigue Status: Acute (5) Failure of outpatient treatment Status: Acute (6) Hematuria Status: Acute (7) Hypokalemia Status: Acute (8) Hyponatremia Status: Acute (9) Hyponatremia Status: Acute (10) Muscle spasm Status: Acute (11) Normocytic anemia Status: Acute (12) Sepsis Status: Acute (13) UTI (urinary tract infection) Status: Acute Allergies: Coded Allergies: No Known Allergy (Unverified , 10/31/18) Substance Abuse Substance abuse history: No Prior substance abuse treatmen: No Social History Marital status: other DPA/Conservatorship: No Psychiatric Objective Eval Review of Systems: Review of Systems: Not Applicable Physical Examination: Physical Examination: Not Applicable Appetite: Adequate Energy: Adequate Interest: Adequate Mental Status Examination: Appearance: Poor Hygiene Eye Contact: Fair Psychomotor Activity: Normal Behavior: Cooperative Speech: Clear, Soft AFFECT: Constricted Mood: Anxious Thought Content: Hallucinations Orientation: x4 Cognition: Alert Insight: Mild Judgement: Mild Attention Span: Distractible Laboratory Results Laboratory Tests Test 10/31/18 22:51 11/01/18 09:38 11/01/18 17:55 11/01/18 21:50 White Blood Count 9.9 10^3/ul Red Blood Count 3.66 10^6/ul Hemoglobin 11.6 g/dl Hematocrit 33.8 % Mean Corpuscular 92.3 fl Volume Mean Corpuscular 31.7 pg Hemoglobin Mean Corpuscular 34.3 g/dl Hemoglobin Concen t Red Cell 12.4 % Distribution Width Platelet Count 239 10^3/UL Mean Platelet 9.2 fl Volume Immature 0.400 % Granulocytes % Neutrophils % 61.8 % Lymphocytes % 25.0 % Monocytes % 10.0 % Eosinophils % 2.3 % Basophils % 0.5 % Nucleated Red 0.0 /100WBC Blood Cells % Immature 0.040 10^3/ul Granulocytes # Neutrophils # 6.1 10^3/ul Lymphocytes # 2.5 10^3/ul Monocytes # 1.0 10^3/ul Eosinophils # 0.2 10^3/ul Basophils # 0.1 10^3/ul Nucleated Red 0.0 10^3/ul Blood Cells # Prothrombin Time 12.2 Sec Prothrombin Time 1.0 Ratio INR International 0.89 Normalized Ratio Activated 36.1 Sec Partial Thrombopl ast Time Sodium Level 137 mmol/L Potassium Level 3.4 mmol/L Chloride Level 98 mmol/L Carbon Dioxide 28 mmol/L Level Anion Gap 11 Blood Urea 7 mg/dl Nitrogen Creatinine 0.69 mg/dl Est Glomerular > 60 mL/min Filtrat Rate mL/min Glucose Level 104 mg/dl Calcium Level 8.9 mg/dl Troponin I < 0.012 ng/ml < 0.012 ng/ml < 0.012 ng/ml Lab Scanned LAB [id number] Report Creatine Kinase 451 IU/L 492 IU/L Creatine Kinase 0.7 0.7 Index Creatinine Kinase 3.34 ng/ml 3.67 ng/ml MB (Mass) Test 11/02/18 04:28 White Blood Count 11.3 10^3/ul Red Blood Count 3.92 10^6/ul Hemoglobin 12.1 g/dl Hematocrit 36.0 % Mean Corpuscular 91.8 fl Volume Mean Corpuscular 30.9 pg Hemoglobin Mean Corpuscular 33.6 g/dl Hemoglobin Concen t Red Cell 12.7 % Distribution Width Platelet Count 271 10^3/UL Mean Platelet 9.6 fl Volume Immature 0.400 % Granulocytes % Neutrophils % 65.3 % Lymphocytes % 23.1 % Monocytes % 9.0 % Eosinophils % 1.8 % Basophils % 0.4 % Nucleated Red 0.0 /100WBC Blood Cells % Immature 0.040 10^3/ul Granulocytes # Neutrophils # 7.4 10^3/ul Lymphocytes # 2.6 10^3/ul Monocytes # 1.0 10^3/ul Eosinophils # 0.2 10^3/ul Basophils # 0.0 10^3/ul Nucleated Red 0.0 10^3/ul Blood Cells # Sodium Level 139 mmol/L Potassium Level 3.0 mmol/L Chloride Level 95 mmol/L Carbon Dioxide 30 mmol/L Level Anion Gap 14 Blood Urea 12 mg/dl Nitrogen Creatinine 0.74 mg/dl Est Glomerular > 60 mL/min Filtrat Rate mL/min Glucose Level 97 mg/dl Calcium Level 9.1 mg/dl Phosphorus Level 4.6 mg/dl Magnesium Level 1.9 mg/dl Assessment and Plan Assessment/Diagnosis Diagnosis Schizophrenia unspecified Recommendation/Plan Medication Management Risperdal 1 mg daily Multiple antipsychotics: No Discharge Disposition: Other Legal Status: Voluntary (None meets criteria for 5150 hold) SUSANA PIERCE NP Nov 02, 2018 15:39
--- NOTE | 2018-11-02 16:25 | RADRPT ---
Echocardiogram Report Patient Name: ALMAS PARKPatient ID: [id number] : 1955 (63y )Study Date: 11/02/2018 8:37:22 AM Gender: MAccession #: [id number] Tech: Oliverio Webber [facility] Location: [id number] Ref.Physician: COURTNEY HORTON Height(Cm): BSA: Weight(Kg): Quality: Technically Difficult StudyAccount #: Procedures: Echocardiographic Report: Transthoracic echocardiogram with complete 2D, M-Mode, and doppler examination. Indications: fall, EF? Measurements: 2D/M Mode Doppler Measurement Value Normal Range Measurement Value Normal Range LVIDd 2D 4.0 [ 4.2 - 5.8 ] cm AV Peak Marco 1.5 [ 100.0 - 170.0 ] cm/sec LVIDs 2D 2.7 [ 2.5 - 4.0 ] cm AV Peak PG 9.0 [ 2.0 - 9.0 ] mmHg LVPWd 2D 1.2 [ 0.6 - 1.0 ] cm LVOT Peak Marco 1.1 [ 70.0 - 110.0 ] cm/sec IVSd 2D 1.2 [ 0.6 - 1.0 ] cm LVOT Peak PG 4.0 [ 2.0 - 6.0 ] mmHg AoR Diam 2D 3.0 [ 2.6 - 3.4 ] cm MV E Peak Marco 0.7 [ 60.0 - 130.0 ] cm/sec EDV 2D 71.3 [ 62.0 - 150.0 ] ml MV A Peak Marco 1.0 [ 100.0 - 120.0 ] cm/sec ESV 2D 25.8 [ 21.0 - 61.0 ] ml MV E/A 0.7 [ 0.8 - 1.5 ] ratio EF 2D 63.8 [ 52.0 - 72.0 ] percent MV Decel Time 155 [ 104 - 258 ] msec LA Dimen 2D 3.1 [ 3.0 - 4.0 ] cm Lat E` Marco 0.1 [ 10.0 - 15.0 ] cm/sec Lateral E/E` 8.4 [ 1.0 - 2.0 ] ratio MV E/A 0.7 [ 0.8 - 1.5 ] ratio TR Peak Marco 2.5 [ 100.0 - 280.0 ] cm/sec TR Peak PG 25.0 mmHg RVSP 28.0 [ 10.0 - 36.0 ] mmHg Findings: Left Ventricle: Normal left ventricular systolic function. Normal left ventricular cavity size. Left ventricular wall thickness upper limits of normal. Ejection fraction is visually estimated at 60 %. Tissue Doppler/Mitral Doppler indices are consistent with impaired relaxation (Stage I diastolic dysfunction). Right Ventricle: Normal right ventricular size. Normal right ventricular systolic function. Left Atrium: The left atrium is normal in size. Right Atrium: The right atrium is normal in size. Mitral Valve: Mild mitral leaflet calcification. Mild mitral annular calcification. Trace mitral regurgitation. Aortic Valve: No significant aortic stenosis or insufficiency. Aortic cusps appear mildly calcified. Tricuspid Valve: Normal appearance of the tricuspid valve. Estimated peak PA systolic pressure 28 mmHg. There is mild tricuspid regurgitation. Pulmonic Valve: Pulmonic valve not well visualized. Pericardium: Normal pericardium with no significant pericardial effusion. Aorta: Normal aortic root. IVC: Normal size and normal respiratory collapse consistent with normal right atrial pressure. Conclusions: Normal left ventricular systolic function. Normal left ventricular cavity size. Left ventricular wall thickness upper limits of normal. Ejection fraction is visually estimated at 60 %. Tissue Doppler/Mitral Doppler indices are consistent with impaired relaxation (Stage I diastolic dysfunction). Mild mitral leaflet calcification. Mild mitral annular calcification. Trace mitral regurgitation. Normal appearance of the tricuspid valve. Estimated peak PA systolic pressure 28 mmHg. There is mild tricuspid regurgitation. Electronically Signed By: Víctor Kyle 2018-11-02 16:24:46 PDT
[2018-11-02] MEDS: SOD CHLORIDE 0.9% 1,000 ML IV SCH (17:24)
[2018-11-02 19:22] VITALS: BP 149/81; PULSE 90; RESP 18
--- NOTE | 2018-11-02 19:36 | QN ---
Documentation Comment The patient is a 63 year old male with history of significant psychiatric disease and long standing lower extremity weakness that has recently progressed. He can no longer use a walker to ambulate safely. Please see chart for further details regarding the patient's past medical history. MRI and CT of the cervical spine was reviewed (MRI T spine unremarkable, L spine pending). He has a high grade stenosis of the cervical spine at C4-5 and C5-6, with moderate stenosis at C3-4 and C6-7. There is evidence of cord signal change. There is minimal straightening of the cervical spine/ loss of lordosis. There is no subluxation or signs of instability.The patient is quadriparetic with high grade cervical stenosis. Surgery (decompressive laminectomy C3-7) is indicated. However the patient has been actively hallucinating and may be difficult to consent; I called his mother and she was made aware of the need for surgery in the am if possible. We will attempt to schedule surgery for tomorrow. VIOLETA BOURGEOIS MD Nov 02, 2018 19:36
[2018-11-02] MEDS: ATORVASTATIN 20 MG TAB PO SCH (20:17)
[2018-11-03] VITALS (26 sets, daily range): BP systolic 123–156; BP diastolic 70–101; PULSE 96–114; RESP 13–25
[2018-11-03] MEDS: SOD CHLORIDE 0.9% 1,000 ML IV SCH ×5 (00:20→22:16)
[2018-11-03] MEDS ORDERED: CEFAZOLIN 1 GM INJ ONE (07:00)
[2018-11-03] MEDS ORDERED: LIDOCAINE 1%/EPI (1:100,000) (MDV) 20 ML ONE (07:15)
[2018-11-03] MEDS ORDERED: THROMBIN 5000 UNIT VIAL ONE ×2 (07:15→09:04)
--- NOTE | 2018-11-03 07:37 | HPN ---
Date/Time of Note Date/Time of Note DATE: 11/03/18 TIME: 07:36 Interval H&P Admission Note Pt. seen H&P reviewed: No system changes VIOLETA BOURGEOIS MD Nov 03, 2018 07:37
[2018-11-03] MEDS ORDERED: MIDAZOLAM 1 MG/ML 2 ML INJ ONE (07:39)
[2018-11-03] MEDS ORDERED: ONDANSETRON 4 MG INJ ONE (07:39)
[2018-11-03] MEDS ORDERED: PROPOFOL 20 ML ONE ×2 (07:39→08:32)
[2018-11-03] MEDS ORDERED: METOCLOPRAMIDE 10 MG INJ ONE (07:40)
[2018-11-03] MEDS ORDERED: POVIDONE IODINE 10% 28.4 GM OINT ONE (07:43)
[2018-11-03] MEDS ORDERED: FENTAnyl 50 MCG/ML VIAL ONE (07:46)
[2018-11-03] MEDS ORDERED: HYDROmorphONE 2 MG/ML SYG ONE (07:47)
[2018-11-03] MEDS ORDERED: PHENYLephrine (100 MCG/ML) 10ML SYG ONE (08:18)
[2018-11-03] MEDS ORDERED: EPHEDrine SULFATE 50 MG/5 ML SYG ONE ×2 (08:18→08:32)
[2018-11-03] MEDS ORDERED: ROCURONIUM 50 MG INJ ONE (08:32)
[2018-11-03] MEDS ORDERED: SUCCINYLCHOLINE CHLORIDE 100 MG/5 ML SYG IV ONE (08:32)
[2018-11-03] MEDS: RISPERIDONE 1 MG TAB PO SCH (09:00)
[2018-11-03] MEDS ORDERED: GLYCOPYRROLATE 0.4 MG INJ ONE (09:42)
[2018-11-03] MEDS ORDERED: NEOSTIGMINE 3 MG/3 ML SYRINGE ONE (09:42)
--- NOTE | 2018-11-03 09:54 | SIPON ---
Date/Time of Note Date/Time of Note DATE: 11/03/18 TIME: 09:52 Operative Report Preoperative Diagnosis cervical spondyltic myelopathy Postoperative Diagnosis same Operation/Procedure Performed decompressive cervical laminectomy C3-C7 Surgeon see signature line product development assistant Shae Talbot Anesthesia: general Estimated blood loss: 10 - 50 ml's Transfusion Required none Specimen lamina Grafts/Implants none Complications none VIOLETA BOURGEOIS MD Nov 03, 2018 09:54
[2018-11-03] MEDS ORDERED: POLYMYXIN/BACITRACIN 1L IRRIG IRR ONE (09:55)
[2018-11-03] MEDS ORDERED: DIPHENHYDRAMINE 25 MG CAP PO PRN (10:00)
[2018-11-03] MEDS ORDERED: HYDROmorphONE 0.2 MG/ML PCA IV SCH (10:00)
[2018-11-03] MEDS ORDERED: ZOLPIDEM 5 MG TAB PO PRN (10:00)
[2018-11-03] MEDS ORDERED: NALOXONE (0.4 MG/ML) INJ IV PRN (10:00)
[2018-11-03] MEDS ORDERED: ACETAMINOPHEN 325 MG TAB PO PRN (10:00)
[2018-11-03] MEDS ORDERED: ONDANSETRON 4 MG INJ IV PRN (11:00)
[2018-11-03] MEDS ORDERED: DIPHENHYDRAMINE 50 MG INJ IV PRN (11:00)
[2018-11-03] MEDS ORDERED: MEPERIDINE 25 MG INJ IV PRN (11:00)
[2018-11-03] MEDS ORDERED: HYDROmorphONE 1 MG/5 ML IV SYRINGE IV PRN ×3 (11:00)
[2018-11-03] MEDS: CEFAZOLIN 1 GM/50 ML (PMX) 50 ML IVPB SCH ×2 (11:01→20:23)
--- NOTE | 2018-11-03 15:15 | CONS ---
Assessment/Plan Assessment/Plan Hospital Course 63 yo M with hx of gait instability and other comorbidities who presents for evaluation of lower extremity weakness, for which neurology is consulted. Most ominously concerning for myelopathy. MRI C spine confirmed severe central canal stenosis of C4-C5. Now s/p decompressive laminectomy of C3-C7. P: Postop management per neurosurgery Pain control and other medical management per primary PT/OT as able Will follow clinically Consultation Date/Type/Reason Admit Date/Time Nov 03, 2018 at 08:36 Type of Consult Neurology Reason for Consultation repeated falls, myelopathy Requesting Provider: COURTNEY HORTON MD Date/Time of Note DATE: 11/03/18 TIME: 15:15 24 HR Interval Summary Free Text/Dictation Continues acute care. Now s/p C3-C7 decompressive laminectomy. Exam Vital Signs Vitals Vital Signs Date Temp Pulse Resp B/P (MAP) Pulse Ox O2 O2 Flow FiO2 Time Delivery Rate 11/03/18 98.2 100 18 144/92 97 Room Air 14:37 (109) 11/03/18 2.0 10:40 Intake and Output 11/02/18 11/02/18 11/03/18 1515:00 23:00 07:00 IntakeIntake Total 1280 ml 800 ml 1200 ml OutputOutput Total 1320 ml 500 ml BalanceBalance -40 ml 300 ml 1200 ml Exam PE: Gen Appearance: No Apparent Distress HEENT: Normocephalic Cardiovascular: Regular rate Lungs: Clear bilaterally Abdomen: Soft Extremities: Dry NE: The patient was alert and grossly oriented. Language was normal. Fund of knowledge was normal. Pupils were equal and reactive to light. There was no afferent pupillary defect. Visual barillas were normal. Funduscopic examination was limited. Extra-ocular mo vements were full. Ptosis was absent. There was no nystagmus. Facial sensation was normal. Face was symmetric with normal strength. Hearing was intact. Palate movements were normal. Neck strength was normal. There was normal tongue bulk and speed of movement. Tone was normal. Muscle bulk was normal. I did not see fasciculations. Arms were weak with mild hand contracture. Hip flexors were weak symmetrically; flexion/extension of lower extremities plantar flexion/dorsiflexion of the ankles were weak (L>R). Vibration sensation was slightly dimished on the L. Temperature and pinprick sensation was normal. Rapid alternating movements were normal. There was no dysmetria. There was no intention tremor. Gait was deferred due to bedrest. Arm reflexes were 2+ and symmetric; leg reflexes were brisk on the LLE. Mackenzie's sign was absent. Plantar responses were equivocal. MY RUCKER NP Nov 03, 2018 15:15 OSCAR MCCLELLAND Nov 03, 2018 16:42
--- NOTE | 2018-11-03 16:02 | PN ---
Date/Time of Note Date/Time of Note DATE: 11/03/18 TIME: 15:59 Assessment/Plan VTE Prophylaxis Risk score (from Ns)>0 risk: 5 SCD applied (from Ns): Yes Pharmacological prophylaxis: NA/contraindicated Pharm contraindication: low risk/ambulating Lines/Catheters IV Catheter Type (from Nrsg): Peripheral IV Urinary Cath still in place: Yes Reason Cath still needed: urinary retention Assessment/Plan Hospital Course 63-year-old male who presented with: 1. Multiple falls with some left side arm muscle spasm. Need to rule out if there is any spinal disease/past concerns or patient's history and exam is somewhat limited due to his history of schizophrenia and being a poor historian. 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 he had cervical myelopathy status posTdecompressive cervical laminectomy C3-C7 pod #1 2. History of schizophrenia. 3. Mild hypokalemia. 4. Arthritis. 5. Hypertension. 6. Hyperlipidemia. Plan - Post OP day #0 -PT OT -pain control -iv ancef - iv fluids - GI/DVT prophylaxsis Patient will likely need SNIF spoke to the family Result Diagram: 11/02/18 0428 11/03/18 0426 Results 24hrs Laboratory Tests Test 11/03/18 04:26 11/03/18 10:10 Sodium Level 139 Potassium Level 3.5 Chloride Level 101 Carbon Dioxide Level 29 Anion Gap 9 # Blood Urea Nitrogen 16 Creatinine 0.78 Est Glomerular Filtrat Rate mL/min > 60 Glucose Level 101 Calcium Level 9.0 Urine Color YELLOW Urine Clarity CLEAR Urine pH 7.0 Urine Specific [place] 1.014 Urine Ketones NEGATIVE Urine Nitrite NEGATIVE Urine Bilirubin NEGATIVE Urine Urobilinogen NEGATIVE Urine Leukocyte Esterase NEGATIVE Urine Microscopic RBC 41 H Urine Microscopic WBC 4 Urine Mucus FEW A Urine Hemoglobin 2+ H Urine Glucose NEGATIVE Urine Total Protein 1+ H Subjective 24 Hr Interval Summary Free Text/Dictation decompressive cervical laminectomy C3-C7 by Dr Hook Exam/Review of Systems Exam Vitals Vital Signs Date Temp Pulse Resp B/P (MAP) Pulse Ox O2 O2 Flow FiO2 Time Delivery Rate 11/03/18 98.2 100 18 144/92 97 Room Air 14:37 (109) 11/03/18 2.0 10:40 Intake and Output 11/02/18 11/02/18 11/03/18 1515:00 23:00 07:00 IntakeIntake Total 1280 ml 800 ml 1200 ml OutputOutput Total 1320 ml 500 ml BalanceBalance -40 ml 300 ml 1200 ml Exam xam GENERAL: The patient is well-developed male, on FISH WARDEN NECK: Supple, no JVD. HEART: Regular rate and rhythm. LUNGS: Clear to auscultate bilaterally. ABDOMEN: Soft, nontender, nondistended, positive normoactive bowel sounds. EXTREMITIES: No local clubbing, cyanosis or edema. SKIN: However, patient has multiple bruises present in the arms and legs. The patient also has a right knee abrasion status post fall, some knee swelling noted on bilateral knees. Arm reflexes were 2+ and symmetric; leg reflexes were brisk on the LLE. Tone was normal. Muscle bulk was normal. Hip flexors were weak symmetrically Results Results 24hrs Laboratory Tests Test 11/03/18 04:26 11/03/18 10:10 Sodium Level 139 Potassium Level 3.5 Chloride Level 101 Carbon Dioxide Level 29 Anion Gap 9 # Blood Urea Nitrogen 16 Creatinine 0.78 Est Glomerular Filtrat Rate mL/min > 60 Glucose Level 101 Calcium Level 9.0 Urine Color YELLOW Urine Clarity CLEAR Urine pH 7.0 Urine Specific [place] 1.014 Urine Ketones NEGATIVE Urine Nitrite NEGATIVE Urine Bilirubin NEGATIVE Urine Urobilinogen NEGATIVE Urine Leukocyte Esterase NEGATIVE Urine Microscopic RBC 41 H Urine Microscopic WBC 4 Urine Mucus FEW A Urine Hemoglobin 2+ H Urine Glucose NEGATIVE Urine Total Protein 1+ H Medications Medication Current Medications IV Flush (NS 3 ml) 3 ml PER PROTOCOL IV ; Start 11/01/18 at 14:30 Ondansetron HCl (Zofran Inj) 4 mg Q6H PRN IV NAUSEA/VOMITING; Start 11/01/18 at 14:30 Acetaminophen/ Hydrocodone Bitart ([place] (5/325)) 1 tab Q6H PRN PO .MOD PAIN 4- 6 Last administered on 11/02/18at 20:17; Admin Dose 1 TAB; Start 11/01/18 at 1 4:30 Enoxaparin Sodium (Lovenox) 40 mg DAILY SC Last administered on 11/02/18at 08:27; Admin Dose 40 MG; Start 11/02/18 at 09:00; Status Hold Atorvastatin Calcium (Lipitor) 20 mg QHS PO Last administered on 11/02/18at 20:17; Admin Dose 20 MG; Start 11/01/18 at 21:00 Sodium Chloride 1,000 ml @ 100 mls/hr Q10H IV Last administered on 11/03/18at 13:11; Admin Dose 100 MLS/HR; Start 11/02/18 at 14:30 Risperidone (Risperdal) 1 mg DAILY PO ; Start 11/03/18 at 09:00 Oxycodone/ Acetaminophen (Percocet (5/ 325)) 2 tab Q4H PRN PO .PAIN 6-10; Start 11/03/18 at 10:00 Cefazolin Sodium 50 ml @ 100 mls/hr Q8H IVPB Last administered on 11/03/18at 11:01; Admin Dose 100 MLS/HR; Start 11/03/18 at 11:00; Stop 11/04/18 at 03:29 Zolpidem Tartrate (Ambien) 5 mg HS PRN PO .INSOMNIA; Start 11/03/18 at 10:00 Docusate Sodium (Colace) 100 mg BID PO ; Start 11/03/18 at 21:00 Pantoprazole (Protonix Iv) 40 mg DAILY@06 IV ; Start 11/04/18 at 06:00 Acetaminophen (Tylenol Tab) 650 mg Q4H PRN PO SIBLEY OR TEMP GREATER THAN 101.3F; Start 11/03/18 at 10:00 Diphenhydramine HCl (Benadryl) 25 mg Q6H PRN PO .ITCHING; Start 11/03/18 at 10:00 Naloxone HCl (Narcan) 0.2 mg Q2M PRN IV .RR 8 BREATHS/MIN OR LESS; Start at 10:00 Hydromorphone HCl (Dilaudid FISH WARDEN) FISH WARDEN to be started in PACU Q4PCA IV Last administered on 11/03/18at 11:10; Admin Dose 6 MG; Start 11/03/18 at 10:00 COURTNEY HORTON MD Nov 03, 2018 16:02
[2018-11-03] MEDS: ATORVASTATIN 20 MG TAB PO SCH (20:23)
[2018-11-03] MEDS: DOCUSATE SODIUM 100 MG CAP PO SCH (20:23)
--- NOTE | 2018-11-03 21:27 | PAC ---
Date/Time of Note Date/Time of Note DATE: 11/03/18 TIME: 21:27 Post-Anesthesia Notes Post-Anesthesia Note Last documented vital signs Vital Signs Date Temp Pulse Resp B/P (MAP) Pulse Ox O2 O2 Flow FiO2 Time Delivery Rate 11/03/18 99.2 105 20 154/94 96 Room Air 19:15 (114) 11/03/18 2.0 10:40 Activity: WNL Respiratory function: WNL Cardiovascular function: WNL Mental status: Baseline Pain reasonably controlled: Yes Hydration appropriate: Yes Nausea/Vomiting absent: No JOSH LOPES MD Nov 03, 2018 21:27
[2018-11-04 00:10] VITALS: BP 143/89; PULSE 105; RESP 20
--- NOTE | 2018-11-04 00:40 | OPR ---
DATE OF OPERATION: 11/03/2018 PREOPERATIVE DIAGNOSIS: Cervical spondylitic myelopathy. POSTOPERATIVE DIAGNOSIS: Cervical spondylitic myelopathy. OPERATION PERFORMED: Cervical 3 through cervical 7 laminectomy for decompression. SURGEON: Julio César Khalil MD QUILTING MACHINE HELPER: Shae Talbot PA-C ANESTHESIA: General endotracheal anesthesia. INDICATIONS: The patient is a 63-year-old male with a history of progressive inability to ambulate, numbness and clumsiness of the hands and MRI shows a multisegmental severe cervical stenosis with cor d signal change, worse at C4-C5 and C5-C6, but with a continuing significant stenosis at C3-C4 and C6 -C7. Given the patient's acute presentation and evidence of cord injury, the risks, benefits and alt ernatives to decompressive cervical laminectomy were explained to the patient and family in detail wi th the aid of a concession manager. Informed consent having so been obtained, the patient was brought to the operating room. OPERATION IN DETAIL: The patient was positioned prone on gel rolls after induction of general anesth esia. The hair over the occiput was clipped. A complete formal timeout was performed per protocol. The patient was pre-prepped, infiltrated with local anesthetic. The patient was then prepped and dr aped in the usual sterile fashion. A midline incision was made with a 10 blade. Bovie electrocauter y was used to dissect down in the midline avascular plane to identify the posterior elements from C2 to C7. A cross table x-ray was used to confirm the identity or the location rather of C2 spinous pro cess. Then, a laminotomy was performed with a high speed drill at C3-C4 and at C6-C7. Using a crani otome, a complete laminectomy of C4, C5 and C6 was performed bilaterally and then a laminectomy at C3 was performed with a cutting milo and with Kerrisons and C7 partial laminectomy was performed with a cutting milo. The laminectomy was extended laterally with Kerrison rongeurs to ensure adequate deco mpression and was irrigated with copious amounts of irrigation. Meticulous hemostasis was obtained. A Hemovac was left in the epidural space, tunneled under the skin and secured with Mastisol and Ster i-Strips. A multilayer closure performed with 0 Vicryl being used to close the deep muscle and fasci a, and 2-0 interrupted inverted Vicryl was used to close the subcuticular layer and then calli on t he skin. The patient tolerated the procedure well. Dictated By: JULIO CÉSAR DE JESUS/KAIN Conf#: [id number] DID#: [id number] CC: DONNA MEDINA MD;*EndCC*
[2018-11-04] MEDS: CEFAZOLIN 1 GM/50 ML (PMX) 50 ML IVPB SCH (03:25)
[2018-11-04 05:00] VITALS: BP 141/86; PULSE 88; RESP 18
[2018-11-04] MEDS ORDERED: PANTOPRAZOLE 40 MG INJ IV SCH (06:00)
[2018-11-04] MEDS: SOD CHLORIDE 0.9% 1,000 ML IV SCH ×2 (06:30→08:53)
[2018-11-04 07:26] VITALS: BP 136/84; PULSE 91
[2018-11-04] MEDS: DOCUSATE SODIUM 100 MG CAP PO SCH ×2 (08:50→20:36)
[2018-11-04] MEDS: RISPERIDONE 1 MG TAB PO SCH (08:51)
[2018-11-04] MEDS ORDERED: POTASSIUM CHLORIDE (SR) 20 MEQ TAB PO STA (09:41)
[2018-11-04] MEDS ORDERED: MAGNESIUM SULFATE 3 GM in DEXTROSE 5% 100 ML IVPB ONE (11:00)
--- NOTE | 2018-11-04 13:20 | PN ---
Date/Time of Note Date/Time of Note DATE: 11/04/18 TIME: 13:16 Assessment/Plan VTE Prophylaxis Risk score (from Ns)>0 risk: 5 SCD applied (from Ns): Yes Pharmacological prophylaxis: NA/contraindicated Pharm contraindication: surgical contra Lines/Catheters IV Catheter Type (from Nrs): Peripheral IV Urinary Cath still in place: No Assessment/Plan Hospital Course 1. Multiple falls with some left side arm muscle spasm. Need to rule out if there is any spinal disease/past concerns or patient's history and exam is somewhat limited due to his history of schizophrenia and being a poor historian. 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 Pt has a cervical myelopathy status pos T-decompressive cervical laminectomy C3-C7 2. History of schizophrenia. 3. Mild hypokalemia. 4. Arthritis. 5. Hypertension. 6. Hyperlipidemia. 7. Normochromic normocytic anemia 8. Electrolyte imbalance Assessment/Plan -regular diet -dc fall -Patient received magnesium and potassium supplements today -PT OT -pain control -iv ancef - iv fluids - GI prophylaxis Protonix -DVT prophylaxis -SNF pending Result Diagram: 11/04/18 0434 11/04/18 0434 Results 24hrs Laboratory Tests Test 11/04/18 04:34 White Blood Count 13.4 H Red Blood Count 3.55 L Hemoglobin 11.2 L Hematocrit 33.1 L Mean Corpuscular Volume 93.2 Mean Corpuscular Hemoglobin 31.5 Mean Corpuscular Hemoglobin Concent 33.8 Red Cell Distribution Width 12.2 Platelet Count 209 # Mean Platelet Volume 9.1 Immature Granulocytes % 0.500 H Neutrophils % 78.4 H Lymphocytes % 9.9 L Monocytes % 10.7 Eosinophils % 0.3 Basophils % 0.2 Nucleated Red Blood Cells % 0.0 Immature Granulocytes # 0.070 H Neutrophils # 10.5 H Lymphocytes # 1.3 Monocytes # 1.4 H Eosinophils # 0.0 Basophils # 0.0 Nucleated Red Blood Cells # 0.0 Sodium Level 134 L Potassium Level 3.1 L Chloride Level 91 #L Carbon Dioxide Level 32 H Anion Gap 11 Blood Urea Nitrogen 9 Creatinine 0.65 Est Glomerular Filtrat Rate mL/min > 60 Glucose Level 117 Calcium Level 8.5 Phosphorus Level 4.0 Magnesium Level 1.5 L Subjective 24 Hr Interval Summary Musculoskeletal: neck pain; No no complaints, No back pain, No restricted range of motion, No swelling, No other Exam/Review of Systems Exam Vitals Vital Signs Date Temp Pulse Resp B/P (MAP) Pulse Ox O2 O2 Flow FiO2 Time Delivery Rate 11/04/18 20 13:00 11/04/18 98.3 91 136/84 96 Nasal 07:26 (101) Cannula 11/03/18 2.0 10:40 Intake and Output 11/03/18 11/03/18 11/04/18 1515:00 23:00 07:00 IntakeIntake Total 2720 ml 300 ml 650 ml OutputOutput Total 398 ml 3210 ml 4600 ml BalanceBalance 2322 ml -2910 ml -3950 ml Constitutional: alert, oriented (x2) Head: normocephalic Eyes: nl conjunctiva ENMT: nl external ears & nose Neck: other (surgical scar) Results Results 24hrs Laboratory Tests Test 11/04/18 04:34 White Blood Count 13.4 H Red Blood Count 3.55 L Hemoglobin 11.2 L Hematocrit 33.1 L Mean Corpuscular Volume 93.2 Mean Corpuscular Hemoglobin 31.5 Mean Corpuscular Hemoglobin Concent 33.8 Red Cell Distribution Width 12.2 Platelet Count 209 # Mean Platelet Volume 9.1 Immature Granulocytes % 0.500 H Neutrophils % 78.4 H Lymphocytes % 9.9 L Monocytes % 10.7 Eosinophils % 0.3 Basophils % 0.2 Nucleated Red Blood Cells % 0.0 Immature Granulocytes # 0.070 H Neutrophils # 10.5 H Lymphocytes # 1.3 Monocytes # 1.4 H Eosinophils # 0.0 Basophils # 0.0 Nucleated Red Blood Cells # 0.0 Sodium Level 134 L Potassium Level 3.1 L Chloride Level 91 #L Carbon Dioxide Level 32 H Anion Gap 11 Blood Urea Nitrogen 9 Creatinine 0.65 Est Glomerular Filtrat Rate mL/min > 60 Glucose Level 117 Calcium Level 8.5 Phosphorus Level 4.0 Magnesium Level 1.5 L Medications Medication Current Medications IV Flush (NS 3 ml) 3 ml PER PROTOCOL IV ; Start 11/01/18 at 14:30 Ondansetron HCl (Zofran Inj) 4 mg Q6H PRN IV NAUSEA/VOMITING; Start 11/01/18 at 14:30 Acetaminophen/ Hydrocodone Bitart ([place] (5/325)) 1 tab Q6H PRN PO .MOD PAIN 4- 6 Last administered on 11/02/18 20:17; Admin Dose 1 TAB; Start 11/01/18 at 14:30 Enoxaparin Sodium (Lovenox) 40 mg DAILY SC Last administered on 11/02/18 08:27; Admin Dose 40 MG; Start 11/02/18 at 09:00; Status Hold Atorvastatin Calcium (Lipitor) 20 mg QHS PO Last administered on 11/03/18 20:23; Admin Dose 20 MG; Start 11/01/18 at 21:00 Sodium Chloride 1,000 ml @ 100 mls/hr Q10H IV Last administered on 11/04/18 08:53; Admin Dose 100 MLS/HR; Start 11/02/18 at 14:30 Risperidone (Risperdal) 1 mg DAILY PO Last administered on 11/04/18 08:51; Admin Dose 1 MG; Start 11/03/18 at 09:00 Oxycodone/ Acetaminophen (Percocet (5/ 325)) 2 tab Q4H PRN PO .PAIN 6-10; Start 11/03/18 at 10:00 Zolpidem Tartrate (Ambien) 5 mg HS PRN PO .INSOMNIA; Start 11/03/18 at 10:00 Docusate Sodium (Colace) 100 mg BID PO Last administered on 11/04/18at 08:50; A dmin Dose 100 MG; Start 11/03/18 at 21:00 Pantoprazole (Protonix Iv) 40 mg DAILY@06 IV Last administered on 11/04/18 05:23; Admin Dose 40 MG; Start 11/04/18 at 06:00 Acetaminophen (Tylenol Tab) 650 mg Q4H PRN PO SIBLEY OR TEMP GREATER THAN 101.3F; Start 11/03/18 at 10:00 Diphenhydramine HCl (Benadryl) 25 mg Q6H PRN PO .ITCHING; Start 11/03/18 at 10:00 Naloxone HCl (Narcan) 0.2 mg Q2M PRN IV .RR 8 BREATHS/MIN OR LESS; Start 11/03/18 at 10:00 Hydromorphone HCl (Dilaudid AIRCRAFT SERVICER) AIRCRAFT SERVICER to be started in PACU Q4PCA IV Last administered on 11/03/18at 11:10; Admin Dose 6 MG; Start 11/03/18 at 10:00 Magnesium Sulfate 3 gm/Dextrose 106 ml @ 35.333 mls/ hr ONCE ONCE IVPB Last administered on 11/04/18at 11:52; Admin Dose 35.333 MLS/HR; Start 11/04/18 at 11:00; Stop 11/04/18 at 13:59 GRACE HINDS Nov 04, 2018 13:20
[2018-11-04 14:38] VITALS: BP 138/77; PULSE 91; RESP 18
--- NOTE | 2018-11-04 16:35 | CONS ---
Assessment/Plan Assessment/Plan Hospital Course 63 yo M with hx of gait instability and other comorbidities who presents for evaluation of lower extremity weakness, for which neurology is consulted. Most ominously concerning for myelopathy. MRI C spine confirmed severe central canal stenosis of C4-C5. Now s/p decompressive laminectomy of C3-C7. P: Postop management per neurosurgery Pain control and other medical management per primary PT/OT as able Will follow clinically Consultation Date/Type/Reason Admit Date/Time Nov 03, 2018 at 08:36 Type of Consult Neurology Reason for Consultation repeated falls, myelopathy Requesting Provider: COURTNEY HORTON MD Date/Time of Note DATE: 11/04/18 TIME: 16:33 24 HR Interval Summary Free Text/Dictation Continues acute care. Postop day 2. S/p MRI L spine. Pt has c/o neck pain; in on OCCUPATIONAL THERAPY ASSIST pump Exam Vital Signs Vitals Vital Signs Date Temp Pulse Resp B/P (MAP) Pulse Ox O2 O2 Flow FiO2 Time Delivery Rate 11/04/18 98.3 91 18 138/77 99 Room Air 14:38 (97) 11/03/18 2.0 10:40 Intake and Output 11/03/18 11/03/18 11/04/18 1515:00 23:00 07:00 IntakeIntake Total 2720 ml 300 ml 650 ml OutputOutput Total 398 ml 3210 ml 4600 ml BalanceBalance 2322 ml -2910 ml -3950 ml Exam PE: Gen Appearance: No Apparent Distress HEENT: Normocephalic Cardiovascular: Regular rate Lungs: Clear bilaterally Abdomen: Soft Extremities: Dry NE: The patient was alert and grossly oriented. Language was normal. Fund of knowledge was normal. Pupils were equal and reactive to light. There was no afferent pupillary defect. Visual barillas were normal. Funduscopic examination was limited. Extra-ocular movements were full. Ptosis was absent. There was no nystagmus. Facial sensation was normal. Face was symmetric with normal strength. Hearing was intact. Palate movements were normal. Neck strength was normal. There was normal tongue bulk and speed of movement. Tone was normal. Muscle bulk was normal. I did not see fasciculations. Arms were weak with mild hand contracture. Hip flexors were weak symmetrically; flexion/extension of lower extremities plantar flexion/dorsiflexion of the ankles were weak (L>R). Vibration sensation was slightly dimished on the L. Temperature and pinprick sensation was normal. Rapid alternating movements were normal. There was no dysmetria. There was no intention tremor. Gait was deferred due to bedrest. Arm reflexes were 2+ and symmetric; leg reflexes were brisk on the LLE. Mackenzie's sign was absent. Plantar responses were equivocal. MY RUCKER NP Nov 04, 2018 16:35 OSCAR MCCLELLAND Nov 04, 2018 19:47
--- NOTE | 2018-11-04 17:28 | PAC ---
Date/Time of Note Date/Time of Note DATE: 11/04/18 TIME: 17:28 Post-Anesthesia Notes Post-Anesthesia Note Last documented vital signs Vital Signs Date Temp Pulse Resp B/P (MAP) Pulse Ox O2 O2 Flow FiO2 Time Delivery Rate 11/04/18 99.6 16:20 11/04/18 99.6 91 18 138/77 99 Room Air 14:38 (97) 11/03/18 2.0 10:40 Activity: WNL Respiratory function: WNL Cardiovascular function: WNL Mental status: Baseline Pain reasonably controlled: Yes Hydration appropriate: Yes Nausea/Vomiting absent: No JOSH LOPES MD Nov 04, 2018 17:28
[2018-11-04] MEDS: OXYCODONE/ACETAMINOPHEN (5/325) TAB PO PRN (17:52)
[2018-11-04 19:35] VITALS: BP 128/72; PULSE 101; RESP 20
[2018-11-04] MEDS: ATORVASTATIN 20 MG TAB PO SCH (20:36)
[2018-11-05 02:10] VITALS: BP 136/70; PULSE 93; RESP 20
[2018-11-05] MEDS: OXYCODONE/ACETAMINOPHEN (5/325) TAB PO PRN (05:44)
[2018-11-05] MEDS: PANTOPRAZOLE (EC) 40 MG TAB PO SCH (05:44)
[2018-11-05] MEDS: HYDROCODONE/APAP (5/325) TAB PO PRN (07:00)
[2018-11-05 08:00] VITALS: BP 137/75; PULSE 114; RESP 18
--- NOTE | 2018-11-05 08:17 | CONS ---
Assessment/Plan Assessment/Plan Assessment/Plan (Daily) 63 year old with schizophrenia s/p C3-7 lami, doing well postop. MRI L-spine demonstrates significant L4/5, L5/S1 neuroforaminal stenosis, but no significant central stenosis - remove drain - continue PT/OT - can evaluate lumbar spine when recovered from cervical operation Consultation Date/Type/Reason Admit Date/Time Nov 03, 2018 at 08:36 Initial Consult Date Type of Consult Neurosurgery Reason for Consultation POD2 C3-7 laminectomy Requesting Provider: COURTNEY HORTON MD Date/Time of Note DATE: 11/05/18 TIME: 08:15 24 HR Interval Summary Free Text/Dictation Patient stable, Worked with PT/OT yesterday. States a little stronger on the left Exam/Review of Systems Exam Vitals Vital Signs Date Temp Pulse Resp B/P (MAP) Pulse Ox O2 O2 Flow FiO2 Time Delivery Rate 11/05/18 98.4 93 20 136/70 97 Room Air 02:10 (92) 11/03/18 2.0 10:40 Intake and Output 11/04/18 11/04/18 11/05/18 1515:00 23:00 07:00 IntakeIntake Total 1556 ml 400 ml OutputOutput Total 1400 ml 950 ml 810 ml BalanceBalance 156 ml -950 ml -410 ml Exam At least antigravity in BLEs Incision c/d/i HV - 10cc overnight Results Result Diagram: 11/05/18 0453 11/05/18 0453 Results 24hrs Laboratory Tests Test 11/05/18 04:53 White Blood Count 13.1 H Red Blood Count 3.40 L Hemoglobin 10.8 L Hematocrit 31.2 L Mean Corpuscular Volume 91.8 Mean Corpuscular Hemoglobin 31.8 Mean Corpuscular Hemoglobin Concent 34.6 Red Cell Distribution Width 12.4 Platelet Count 193 Mean Platelet Volume 9.7 Immature Granulocytes % 0.500 H Neutrophils % 76.1 Lymphocytes % 11.3 L Monocytes % 11.1 H Eosinophils % 0.8 Basophils % 0.2 Nucleated Red Blood Cells % 0.0 Immature Granulocytes # 0.060 H Neutrophils # 9.9 H Lymphocytes # 1.5 Monocytes # 1.5 H Eosinophils # 0.1 Basophils # 0.0 Nucleated Red Blood Cells # 0.0 Sodium Level 131 L Potassium Level 3.5 Chloride Level 93 L Carbon Dioxide Level 31 Anion Gap 7 Blood Urea Nitrogen 13 Creatinine 0.79 Est Glomerular Filtrat Rate mL/min > 60 Glucose Level 127 Calcium Level 8.6 Medications Medication Current Medications IV Flush (NS 3 ml) 3 ml PER PROTOCOL IV ; Start 11/01/18 at 14:30 Ondansetron HCl (Zofran Inj) 4 mg Q6H PRN IV NAUSEA/VOMITING; Start 11/01/18 at 14:30 Acetaminophen/ Hydrocodone Bitart ([place] (5/325)) 1 tab Q6H PRN PO .MOD PAIN 4- 6 Last administered on 11/05/18 07:00; Admin Dose 1 TAB; Start 11/01/18 at 14:30 Enoxaparin Sodium (Lovenox) 40 mg DAILY SC Last administered on 11/02/18 08:27; Admin Dose 40 MG; Start 11/02/18 at 09:00; Status Hold Atorvastatin Calcium (Lipitor) 20 mg QHS PO Last administered on 11/04/18 20:36; Admin Dose 20 MG; Start 11/01/18 at 21:00 Risperidone (Risperdal) 1 mg DAILY PO Last administered on 11/04/18 08:51; Admin Dose 1 MG; Start 11/03/18 at 09:00 Oxycodone/ Acetaminophen (Percocet (5/ 325)) 2 tab Q4H PRN PO .PAIN 6-10 Last administered on 11/05/18 05:44; Admin Dose 2 TAB; Start 11/03/18 at 10:00 Zolpidem Tartrate (Ambien) 5 mg HS PRN PO .INSOMNIA Last administered on 11/04/18 20:36; Admin Dose 5 MG; Start 11/03/18 at 10:00 Docusate Sodium (Colace) 100 mg BID PO Last administered on 11/04/18 20:36; Admin Dose 100 MG; Start 11/03/18 at 21:00 Acetaminophen (Tylenol Tab) 650 mg Q4H PRN PO SIBLEY OR TEMP GREATER THAN 101.3F Last administered on 11/04/18 16:22; Admin Dose 650 MG; Start 11/03/18 at 10:00 Diphenhydramine HCl (Benadryl) 25 mg Q6H PRN PO .ITCHING; Start 11/03/18 at 10:00 Naloxone HCl (Narcan) 0.2 mg Q2M PRN IV .RR 8 BREATHS/MIN OR LESS; Start 11/03/18 at 10:00 Pantoprazole (Protonix Tab) 40 mg DAILY@06 PO Last administered on 11/05/18at 05:44; Admin Dose 40 MG; Start 11/05/18 at 06:00 ZEHRA ERNST MD Nov 05, 2018 08:17
[2018-11-05] MEDS: RISPERIDONE 1 MG TAB PO SCH (09:52)
[2018-11-05] MEDS: DOCUSATE SODIUM 100 MG CAP PO SCH ×2 (09:52→20:45)
[2018-11-05 14:00] VITALS: BP 135/70; PULSE 100; RESP 18
--- NOTE | 2018-11-05 15:24 | PN ---
Date/Time of Note Date/Time of Note DATE: 11/05/18 TIME: 15:21 Assessment/Plan VTE Prophylaxis Risk score (from Ns)>0 risk: 4 SCD applied (from Ns): Yes Pharmacological prophylaxis: NA/contraindicated Pharm contraindication: surgical contra Lines/Catheters IV Catheter Type (from Nrs): Peripheral IV Urinary Cath still in place: No Assessment/Plan Hospital Course 1. Multiple falls with some left side arm muscle spasm. 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 Pt has a cervical myelopathy status pos T-decompressive cervical laminectomy C3-C7 2. History of schizophrenia. 3. Mild hypokalemia. 4. Arthritis. 5. Hypertension. 6. Hyperlipidemia. 7. Normochromic normocytic anemia 8. Electrolyte imbalance Assessment/Plan -WBC going down -regular diet -PT OT -pain control - GI prophylaxis Protonix -DVT prophylaxis SCD -SNF pending Result Diagram: 11/05/18 0453 11/05/18 0453 Results 24hrs Laboratory Tests Test 11/05/18 04:53 White Blood Count 13.1 H Red Blood Count 3.40 L Hemoglobin 10.8 L Hematocrit 31.2 L Mean Corpuscular Volume 91.8 Mean Corpuscular Hemoglobin 31.8 Mean Corpuscular Hemoglobin Concent 34.6 Red Cell Distribution Width 12.4 Platelet Count 193 Mean Platelet Volume 9.7 Immature Granulocytes % 0.500 H Neutrophils % 76.1 Lymphocytes % 11.3 L Monocytes % 11.1 H Eosinophils % 0.8 Basophils % 0.2 Nucleated Red Blood Cells % 0.0 Immature Granulocytes # 0.060 H Neutrophils # 9.9 H Lymphocytes # 1.5 Monocytes # 1.5 H Eosinophils # 0.1 Basophils # 0.0 Nucleated Red Blood Cells # 0.0 Sodium Level 131 L Potassium Level 3.5 Chloride Level 93 L Carbon Dioxide Level 31 Anion Gap 7 Blood Urea Nitrogen 13 Creatinine 0.79 Est Glomerular Filtrat Rate mL/min > 60 Glucose Level 127 Calcium Level 8.6 Exam/Review of Systems Exam Vitals Vital Signs Date Temp Pulse Resp B/P (MAP) Pulse Ox O2 O2 Flow FiO2 Time Delivery Rate 11/05/18 98.2 100 18 135/70 93 14:00 (91) 11/05/18 Room Air 02:10 11/03/18 2.0 10:40 Intake and Output 11/04/18 11/04/18 11/05/18 1414:59 22:59 06:59 IntakeIntake Total 1450 ml 106 ml 400 ml OutputOutput Total 1400 ml 950 ml 810 ml BalanceBalance 50 ml -844 ml -410 ml Eyes: nl conjunctiva Neck: other (surgical dresing) Respiratory: clear to auscultation Cardiovascular: regular rate and rhythm Gastrointestinal: soft Results Results 24hrs Laboratory Tests Test 11/05/18 04:53 White Blood Count 13.1 H Red Blood Count 3.40 L Hemoglobin 10.8 L Hematocrit 31.2 L Mean Corpuscular Volume 91.8 Mean Corpuscular Hemoglobin 31.8 Mean Corpuscular Hemoglobin Concent 34.6 Red Cell Distribution Width 12.4 Platelet Count 193 Mean Platelet Volume 9.7 Immature Granulocytes % 0.500 H Neutrophils % 76.1 Lymphocytes % 11.3 L Monocytes % 11.1 H Eosinophils % 0.8 Basophils % 0.2 Nucleated Red Blood Cells % 0.0 Immature Granulocytes # 0.060 H Neutrophils # 9.9 H Lymphocytes # 1.5 Monocytes # 1.5 H Eosinophils # 0.1 Basophils # 0.0 Nucleated Red Blood Cells # 0.0 Sodium Level 131 L Potassium Level 3.5 Chloride Level 93 L Carbon Dioxide Level 31 Anion Gap 7 Blood Urea Nitrogen 13 Creatinine 0.79 Est Glomerular Filtrat Rate mL/min > 60 Glucose Level 127 Calcium Level 8.6 Medications Medication Current Medications IV Flush (NS 3 ml) 3 ml PER PROTOCOL IV ; Start 11/01/18 at 14:30 Ondansetron HCl (Zofran Inj) 4 mg Q6H PRN IV NAUSEA/VOMITING; Start 11/01/18 at 14:30 Acetaminophen/ Hydrocodone Bitart ([place] (5/325)) 1 tab Q6H PRN PO .MOD PAIN 4- 6 Last administered on 11/05/18at 07:00; Admin Dose 1 TAB; Start 11/01/18 at 14:30 Enoxaparin Sodium (Lovenox) 40 mg DAILY SC Last administered on 11/02/18at 08:27; Admin Dose 40 MG; Start 11/02/18 at 09:00; Status Hold Atorvastatin Calcium (Lipitor) 20 mg QHS PO Last administered on 11/04/18at 20: 36; Admin Dose 20 MG; Start 11/01/18 at 21:00 Risperidone (Risperdal) 1 mg DAILY PO Last administered on 11/05/18 09:52; Admin Dose 1 MG; Start 11/03/18 at 09:00 Oxycodone/ Acetaminophen (Percocet (5/ 325)) 2 tab Q4H PRN PO .PAIN 6-10 Last administered on 11/05/18 05:44; Admin Dose 2 TAB; Start 11/03/18 at 10:00 Zolpidem Tartrate (Ambien) 5 mg HS PRN PO .INSOMNIA Last administered on 11/04/18 20:36; Admin Dose 5 MG; Start 11/03/18 at 10:00 Docusate Sodium (Colace) 100 mg BID PO Last administered on 11/05/18 09:52; Admin Dose 100 MG; Start 11/03/18 at 21:00 Acetaminophen (Tylenol Tab) 650 mg Q4H PRN PO SIBLEY OR TEMP GREATER THAN 101.3F Last administered on 11/04/18 16:22; Admin Dose 650 MG; Start 11/03/18 at 10:00 Diphenhydramine HCl (Benadryl) 25 mg Q6H PRN PO .ITCHING; Start 11/03/18 at 10:00 Naloxone HCl (Narcan) 0.2 mg Q2M PRN IV .RR 8 BREATHS/MIN OR LESS; Start 11/03/18 at 10:00 Pantoprazole (Protonix Tab) 40 mg DAILY@06 PO Last administered on 11/05/18 05:44; Admin Dose 40 MG; Start 11/05/18 at 06:00 GRACE HINDS Nov 05, 2018 15:24
[2018-11-05] MEDS: POLYETHYLENE GLYCOL 17 GM PACKET PO PRN (18:38)
[2018-11-05] MEDS: ATORVASTATIN 20 MG TAB PO SCH (20:46)
[2018-11-06 01:37] VITALS: BP 125/73; PULSE 96; RESP 18
[2018-11-06] MEDS: PANTOPRAZOLE (EC) 40 MG TAB PO SCH (06:10)
[2018-11-06 08:14] VITALS: BP 138/76; PULSE 96; RESP 16
[2018-11-06] MEDS: DOCUSATE SODIUM 100 MG CAP PO SCH ×2 (08:49→20:14)
[2018-11-06] MEDS: RISPERIDONE 1 MG TAB PO SCH (08:50)
[2018-11-06] MEDS: POLYETHYLENE GLYCOL 17 GM PACKET PO PRN (08:51)
--- NOTE | 2018-11-06 11:36 | PN ---
Date/Time of Note Date/Time of Note DATE: 11/06/18 TIME: 11:36 Assessment/Plan VTE Prophylaxis Risk score (from Ns)>0 risk: 2 SCD applied (from Ns): Yes Pharmacological prophylaxis: LMWH Pharm contraindication: surgical contra Lines/Catheters IV Catheter Type (from Nrs): Peripheral IV Urinary Cath still in place: No Assessment/Plan Hospital Course 1. Multiple falls with some left side arm muscle spasm. 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 Pt has a cervical myelopathy status pos T-decompressive cervical laminectomy C3-C7 2. History of schizophrenia. 3. Mild hypokalemia. 4. Arthritis. 5. Hypertension. 6. Hyperlipidemia. 7. Normochromic normocytic anemia 8. Electrolyte imbalance Assessment/Plan -WBC normal -regular diet -c/w PT OT -pt reported no pain - GI prophylaxis Protonix -DVT prophylaxis SCD, 3 days after surgery, start Lovenox -SNF pending Result Diagram: 11/06/180 11/06/18 0440 Results 24hrs Laboratory Tests Test 11/06/18 04:40 White Blood Count 10.4 # Red Blood Count 3.17 L Hemoglobin 10.1 L Hematocrit 29.1 L Mean Corpuscular Volume 91.8 Mean Corpuscular Hemoglobin 31.9 Mean Corpuscular Hemoglobin Concent 34.7 Red Cell Distribution Width 12.3 Platelet Count 194 Mean Platelet Volume 9.4 Immature Granulocytes % 0.400 Neutrophils % 72.2 Lymphocytes % 14.4 L Monocytes % 11.6 H Eosinophils % 1.2 Basophils % 0.2 Nucleated Red Blood Cells % 0.0 Immature Granulocytes # 0.040 H Neutrophils # 7.5 Lymphocytes # 1.5 Monocytes # 1.2 H Eosinophils # 0.1 Basophils # 0.0 Nucleated Red Blood Cells # 0.0 Sodium Level 131 L Potassium Level 3.7 Chloride Level 94 L Carbon Dioxide Level 30 Anion Gap 7 Blood Urea Nitrogen 16 Creatinine 0.72 Est Glomerular Filtrat Rate mL/min > 60 Glucose Level 135 Calcium Level 8.3 L Subjective 24 Hr Interval Summary ENT: pain (neck area) Exam/Review of Systems Exam Vitals Vital Signs Date Temp Pulse Resp B/P (MAP) Pulse Ox O2 O2 Flow FiO2 Time Delivery Rate 11/06/18 98.4 96 16 138/76 94 08:14 (96) 11/05/18 Room Air 02:10 11/03/18 2.0 10:40 Intake and Output 11/05/18 11/05/18 11/06/18 1414:59 22:59 06:59 IntakeIntake Total 400 ml 2800 ml OutputOutput Total 500 ml 1375 ml BalanceBalance -100 ml 1425 ml Constitutional: alert, oriented Eyes: nl conjunctiva Neck: other (surgical scar) Cardiovascular: regular rate and rhythm Gastrointestinal: soft Results Results 24hrs Laboratory Tests Test 11/06/18 04:40 White Blood Count 10.4 # Red Blood Count 3.17 L Hemoglobin 10.1 L Hematocrit 29.1 L Mean Corpuscular Volume 91.8 Mean Corpuscular Hemoglobin 31.9 Mean Corpuscular Hemoglobin Concent 34.7 Red Cell Distribution Width 12.3 Platelet Count 194 Mean Platelet Volume 9.4 Immature Granulocytes % 0.400 Neutrophils % 72.2 Lymphocytes % 14.4 L Monocytes % 11.6 H Eosinophils % 1.2 Basophils % 0.2 Nucleated Red Blood Cells % 0.0 Immature Granulocytes # 0.040 H Neutrophils # 7.5 Lymphocytes # 1.5 Monocytes # 1.2 H Eosinophils # 0.1 Basophils # 0.0 Nucleated Red Blood Cells # 0.0 Sodium Level 131 L Potassium Level 3.7 Chloride Level 94 L Carbon Dioxide Level 30 Anion Gap 7 Blood Urea Nitrogen 16 Creatinine 0.72 Est Glomerular Filtrat Rate mL/min > 60 Glucose Level 135 Calcium Level 8.3 L Medications Medication Current Medications IV Flush (NS 3 ml) 3 ml PER PROTOCOL IV ; Start 11/01/18 at 14:30 Ondansetron HCl (Zofran Inj) 4 mg Q6H PRN IV NAUSEA/VOMITING; Start 11/01/18 at 14:30 Acetaminophen/ Hydrocodone Bitart ([place] (5/325)) 1 tab Q6H PRN PO .MOD PAIN 4- 6 Last administered on 11/05/18at 07:00; Admin Dose 1 TAB; Start 11/01/18 at 14:30 Enoxaparin Sodium (Lovenox) 40 mg DAILY SC Last administered on 11/02/18at 08:27; Admin Dose 40 MG; Start 11/02/18 at 09:00; Status Hold Atorvastatin Calcium (Lipitor) 20 mg QHS PO Last administered on 3/23/19at 20:46; Admin Dose 20 MG; Start 11/01/18 at 21:00 Risperidone (Risperdal) 1 mg DAILY PO Last administered on 11/06/18 08:50; Admin Dose 1 MG; Start 11/03/18 at 09:00 Oxycodone/ Acetaminophen (Percocet (5/ 325)) 2 tab Q4H PRN PO .PAIN 6-10 Last administered on 11/05/18 05:44; Admin Dose 2 TAB; Start 11/03/18 at 10:00 Zolpidem Tartrate (Ambien) 5 mg HS PRN PO .INSOMNIA Last administered on 20:36; Admin Dose 5 MG; Start 11/03/18 at 10:00 Docusate Sodium (Colace) 100 mg BID PO Last administered on 11/06/18 08:49; Admin Dose 100 MG; Start 11/03/18 at 21:00 Acetaminophen (Tylenol Tab) 650 mg Q4H PRN PO SIBLEY OR TEMP GREATER THAN 101.3F Last administered on 11/04/18 16:22; Admin Dose 650 MG; Start 11/03/18 at 10:00 Diphenhydramine HCl (Benadryl) 25 mg Q6H PRN PO .ITCHING; Start 11/03/18 at 10:00 Naloxone HCl (Narcan) 0.2 mg Q2M PRN IV .RR 8 BREATHS/MIN OR LESS; Start 11/03/18 at 10:00 Pantoprazole (Protonix Tab) 40 mg DAILY@06 PO Last administered on 11/06/18 06:10; Admin Dose 40 MG; Start 11/05/18 at 06:00 Polyethylene Glycol (Miralax) 17 gm DAILY PRN PO constipation Last administered on 11/06/18 08:51; Admin Dose 17 GM; Start 11/05/18 at 17:30 GRACE HINDS Nov 06, 2018 11:36
[2018-11-06] MEDS: ENOXAPARIN 40 MG/0.4 ML SYG SC SCH (13:15)
[2018-11-06 13:42] VITALS: BP 130/86; PULSE 98; RESP 18
[2018-11-06] MEDS ORDERED: BISACODYL 10 MG SUPP PR PRN (15:30)
[2018-11-06 19:35] VITALS: BP 156/79; PULSE 107; RESP 18
[2018-11-06] MEDS: ATORVASTATIN 20 MG TAB PO SCH (20:14)
[2018-11-07 01:38] VITALS: BP 155/72; PULSE 65; RESP 16
[2018-11-07] MEDS: PANTOPRAZOLE (EC) 40 MG TAB PO SCH (05:58)
[2018-11-07 07:22] VITALS: BP 138/86; PULSE 102; RESP 18
[2018-11-07] MEDS: RISPERIDONE 1 MG TAB PO SCH (09:55)
[2018-11-07] MEDS: DOCUSATE SODIUM 100 MG CAP PO SCH ×2 (09:55→21:00)
[2018-11-07] MEDS: ENOXAPARIN 40 MG/0.4 ML SYG SC SCH (09:57)
--- NOTE | 2018-11-07 11:58 | CONS ---
Assessment/Plan Assessment/Plan Hospital Course 63 yo M with hx of gait instability and other comorbidities who presents for evaluation of lower extremity weakness, for which neurology is consulted. Most ominously concerning for myelopathy. MRI C spine confirmed severe central canal stenosis of C4-C5. Now s/p decompressive laminectomy of C3-C7. P: Postop management per neurosurgery Pain control and other medical management per primary PT/OT as able Will follow clinically Consultation Date/Type/Reason Admit Date/Time Nov 03, 2018 at 08:36 Type of Consult Neurology Reason for Consultation repeated falls, myelopathy Requesting Provider: COURTNEY HORTON MD Date/Time of Note DATE: 11/07/18 TIME: 11:58 24 HR Interval Summary Free Text/Dictation Continues medsurg monitoring. Seen by neurosurgery. No new complaints reported at this time. Exam Vital Signs Vitals Vital Signs Date Temp Pulse Resp B/P (MAP) Pulse Ox O2 O2 Flow FiO2 Time Delivery Rate 11/07/18 98.3 102 18 138/86 95 07:22 (103) 11/07/18 Room Air 01:38 11/03/18 2.0 10:40 Intake and Output 11/06/18 11/06/18 11/07/18 1515:00 23:00 07:00 IntakeIntake Total 880 ml OutputOutput Total 600 ml 1 ml 600 ml BalanceBalance 280 ml -1 ml -600 ml Exam PE: Gen Appearance: No Apparent Distress HEENT: Normocephalic Cardiovascular: Regular rate Lungs: Clear bilaterally Abdomen: Soft Extremities: Dry NE: The patient was alert and grossly oriented. Language was normal. Fund of knowledge was normal. Pupils were equal and reactive to light. There was no afferent pupillary defect. Visual barillas were normal. Funduscopic examination was limited. Extra-ocular movements were full. Ptosis was absent. There was no nystagmus. Facial sensation was normal. Face was symmetric with normal strength. Hearing was intact. Palate movements were normal. Neck strength was normal. There was normal tongue bulk and speed of movement. Tone was normal. Muscle bulk was normal. I did not see fasciculations. Arms were antigravity. Hip flexors were weak symmetrically; flexion/extension of lower extremities, plantar flexion/dorsiflexion of the ankles were moderately weak (L>R). Vibration sensation was slightly diminished on the L hand. Temperature and pinprick sensation was normal. Rapid alternating movements were normal. There was no dysmetria. There was no intention tremor. Gait was deferred due to bedrest. Arm reflexes were 2+ and symmetric; leg reflexes were brisk on the LLE. Mackenzie's sign was absent. Plantar responses were equivocal. MY RUCKER NP Nov 07, 2018 11:58 OSCAR MCCLELLAND Nov 07, 2018 14:20
--- NOTE | 2018-11-07 12:02 | PN ---
Date/Time of Note Date/Time of Note DATE: 11/07/18 TIME: 12:02 Assessment/Plan VTE Prophylaxis Risk score (from Nsg)>0 risk: 4 SCD applied (from Nsg): Yes Lines/Catheters IV Catheter Type (from Nrsg): [place] Urinary Cath still in place: No Assessment/Plan Hospital Course 63-year-old male who presented with: 1. Multiple falls with some left side arm muscle spasm. Need to rule out if there is any spinal disease/past concerns or patient's history and exam is somewhat limited due to his history of schizophrenia and being a poor historian. 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 he had cervical myelopathy status posTdecompressive cervical laminectomy C3-C7 pod #1 2. History of schizophrenia. 3. Mild hypokalemia. 4. Arthritis. 5. Hypertension. 6. Hyperlipidemia. Plan - Post OP day #0 -PT OT -pain control -iv ancef - iv fluids - GI/DVT prophylaxsis Patient will likely need SNIF spoke to the family Result Diagram: 11/07/18 0431 11/07/18 0431 Results 24hrs Laboratory Tests Test 11/06/18 16:30 11/07/18 04:31 Urine Osmolality 277 Urine Random Sodium 41 White Blood Count 10.3 Red Blood Count 3.21 L Hemoglobin 10.1 L Hematocrit 29.4 L Mean Corpuscular Volume 91.6 Mean Corpuscular Hemoglobin 31.5 Mean Corpuscular Hemoglobin Concent 34.4 Red Cell Distribution Width 12.1 Platelet Count 231 Mean Platelet Volume 9.8 Immature Granulocytes % 0.400 Neutrophils % 68.3 Lymphocytes % 18.2 Monocytes % 11.5 H Eosinophils % 1.3 Basophils % 0.3 Nucleated Red Blood Cells % 0.0 Immature Granulocytes # 0.040 H Neutrophils # 7.0 Lymphocytes # 1.9 Monocytes # 1.2 H Eosinophils # 0.1 Basophils # 0.0 Nucleated Red Blood Cells # 0.0 Sodium Level 134 L Potassium Level 3.6 Chloride Level 92 L Carbon Dioxide Level 31 Anion Gap 11 Blood Urea Nitrogen 14 Creatinine 0.71 Est Glomerular Filtrat Rate mL/min > 60 Glucose Level 121 Calcium Level 8.6 Exam/Review of Systems Exam Vitals Vital Signs Date Temp Pulse Resp B/P (MAP) Pulse Ox O2 O2 Flow FiO2 Time Delivery Rate 11/07/18 98.3 102 18 138/86 95 07:22 (103) 11/07/18 Room Air 01:38 11/03/18 2.0 10:40 Intake and Output 11/06/18 11/06/18 11/07/18 1515:00 23:00 07:00 IntakeIntake Total 880 ml OutputOutput Total 600 ml 1 ml 600 ml BalanceBalance 280 ml -1 ml -600 ml Results Results 24hrs Laboratory Tests Test 11/06/18 16:30 11/07/18 04:31 Urine Osmolality 277 Urine Random Sodium 41 White Blood Count 10.3 Red Blood Count 3.21 L Hemoglobin 10.1 L Hematocrit 29.4 L Mean Corpuscular Volume 91.6 Mean Corpuscular Hemoglobin 31.5 Mean Corpuscular Hemoglobin Concent 34.4 Red Cell Distribution Width 12.1 Platelet Count 231 Mean Platelet Volume 9.8 Immature Granulocytes % 0.400 Neutrophils % 68.3 Lymphocytes % 18.2 Monocytes % 11.5 H Eosinophils % 1.3 Basophils % 0.3 Nucleated Red Blood Cells % 0.0 Immature Granulocytes # 0.040 H Neutrophils # 7.0 Lymphocytes # 1.9 Monocytes # 1.2 H Eosinophils # 0.1 Basophils # 0.0 Nucleated Red Blood Cells # 0.0 Sodium Level 134 L Potassium Level 3.6 Chloride Level 92 L Carbon Dioxide Level 31 Anion Gap 11 Blood Urea Nitrogen 14 Creatinine 0.71 Est Glomerular Filtrat Rate mL/min > 60 Glucose Level 121 Calcium Level 8.6 Medications Medication Current Medications IV Flush (NS 3 ml) 3 ml PER PROTOCOL IV ; Start 11/01/18 at 14:30 Ondansetron HCl (Zofran Inj) 4 mg Q6H PRN IV NAUSEA/VOMITING; Start 11/01/18 at 14:30 Acetaminophen/ Hydrocodone Bitart ([place] (5/325)) 1 tab Q6H PRN PO .MOD PAIN 4- 6 Last administered on 11/05/18at 07:00; Admin Dose 1 TAB; Start 11/01/18 at 14:30 Atorvastatin Calcium (Lipitor) 20 mg QHS PO Last administered on 11/06/18at 20:14; Admin Dose 20 MG; Start 11/01/18 at 21:00 Risperidone (Risperdal) 1 mg DAILY PO Last administered on 11/07/18at 09:55; Admin Dose 1 MG; Start 11/03/18 at 09:00 Oxycodone/ Acetaminophen (Percocet (5/ 325)) 2 tab Q4H PRN PO .PAIN 6-10 Last administered on 11/05/18 05:44; Admin Dose 2 TAB; Start 11/03/18 at 10:00 Zolpidem Tartrate (Ambien) 5 mg HS PRN PO .INSOMNIA Last administered on 11/04/18 20:36; Admin Dose 5 MG; Start 11/03/18 at 10:00 Docusate Sodium (Colace) 100 mg BID PO Last administered on 11/07/18 09:55; Admin Dose 100 MG; Start 11/03/18 at 21:00 Acetaminophen (Tylenol Tab) 650 mg Q4H PRN PO SIBLEY OR TEMP GREATER THAN 101.3F Last administered on 11/04/18 16:22; Admin Dose 650 MG; Start 11/03/18 at 10:00 Diphenhydramine HCl (Benadryl) 25 mg Q6H PRN PO .ITCHING; Start 11/03/18 at 10:00 Naloxone HCl (Narcan) 0.2 mg Q2M PRN IV .RR 8 BREATHS/MIN OR LESS; Start 11/03/18 at 10:00 Pantoprazole (Protonix Tab) 40 mg DAILY@06 PO Last administered on 11/07/18 05:58; Admin Dose 40 MG; Start 11/05/18 at 06:00 Polyethylene Glycol (Miralax) 17 gm DAILY PRN PO constipation Last administered on 11/06/18 08:51; Admin Dose 17 GM; Start 11/05/18 at 17:30 Enoxaparin Sodium (Lovenox) 40 mg DAILY SC Last administered on 11/07/18 09:57; Admin Dose 40 MG; Start 11/06/18 at 12:00 Bisacodyl (Dulcolax Supp) 10 mg DAILY PRN [place] CONSTIPATION; Start 11/06/18 at 15:30 COURTNEY HORTON MD Nov 07, 2018 12:02
--- NOTE | 2018-11-07 12:03 | PDOCDIS ---
Discharge Instructions DIAGNOSIS Discharge Diagnosis c spine laminectomy CONDITION [id number] Patient Condition: [id number] Fair HOME CARE INSTRUCTIONS: [id number] Diet Instructions: [id number] Reduced Calorie ACTIVITY: [id number] Activity Restrictions: [id number] Slowly Increase Activity Rest between Activity Avoid heavy lifting FOLLOW UP/APPOINTMENTS Follow-up Plan f/u Dr Khalil in 1 week COURTNEY HORTON MD Nov 07, 2018 12:03
[2018-11-07 13:54] VITALS: BP 158/92; PULSE 103; RESP 18
[2018-11-07 20:18] VITALS: BP 159/88; PULSE 98; RESP 18
[2018-11-07] MEDS: ATORVASTATIN 20 MG TAB PO SCH (21:00)
[2018-11-08 02:55] VITALS: BP 142/79; PULSE 96; RESP 17
[2018-11-08] MEDS: PANTOPRAZOLE (EC) 40 MG TAB PO SCH (05:34)
[2018-11-08 08:02] VITALS: BP 141/87; PULSE 93; RESP 18
[2018-11-08] MEDS: RISPERIDONE 1 MG TAB PO SCH (09:43)
[2018-11-08] MEDS: DOCUSATE SODIUM 100 MG CAP PO SCH (09:43)
[2018-11-08] MEDS: ENOXAPARIN 40 MG/0.4 ML SYG SC SCH (09:45)
--- NOTE | 2018-11-08 11:40 | CONS ---
Assessment/Plan Assessment/Plan Hospital Course 63 yo M with hx of gait instability and other comorbidities who presents for evaluation of lower extremity weakness, for which neurology is consulted. Most ominously concerning for myelopathy. MRI C spine confirmed severe central canal stenosis of C4-C5. Now s/p decompressive laminectomy of C3-C7. P: Postop management per neurosurgery Pain control and other medical management per primary PT/OT as able Will sign off for now; please call w/ ?s Consultation Date/Type/Reason Admit Date/Time Nov 03, 2018 at 08:36 Type of Consult Neurology Reason for Consultation repeated falls, myelopathy Requesting Provider: COURTNEY HORTON MD Date/Time of Note DATE: 11/08/18 TIME: 11:40 24 HR Interval Summary Free Text/Dictation Continues acute care. Pt is without new complaints at this time. Exam Vital Signs Vitals Vital Signs Date Temp Pulse Resp B/P (MAP) Pulse Ox O2 O2 Flow FiO2 Time Delivery Rate 11/08/18 98.3 93 18 141/87 96 08:02 (105) 11/07/18 Room Air 01:38 Intake and Output 11/07/18 11/07/18 11/08/18 1515:00 23:00 07:00 IntakeIntake Total 200 ml 200 ml BalanceBalance 200 ml 200 ml Exam PE: Gen Appearance: No Apparent Distress HEENT: Normocephalic Cardiovascular: Regular rate Lungs: Clear bilaterally Abdomen: Soft Extremities: Dry NE: The patient was alert and grossly oriented. Language was normal. Fund of knowledge was normal. Pupils were equal and reactive to light. There was no afferent pupillary defect. Visual barillas were normal. Funduscopic examination was limited. Extra-ocular movements were full. Ptosis was absent. There was no nystagmus. Facial sensation was normal. Face was symmetric with normal strength. Hearing was intact. Palate movements were normal. Neck strength was normal. There was normal tongue bulk and speed of movement. Tone was normal. Muscle bulk was normal. I did not see fasciculations. Arms and legs were mildly weak, symmetrically Vibration sensation was slightly diminished on the L hand. Temperature and pinprick sensation was normal. Rapid alternating movements were normal. There was no dysmetria. There was no intention tremor. Gait was deferred due to bedrest. Arm reflexes were 2+ and symmetric; leg reflexes were brisk on the LLE. Mackenzie's sign was absent. Plantar responses were equivocal. MY RUCKER NP Nov 08, 2018 11:40 OSCAR MCCLELLAND Nov 08, 2018 14:15
--- NOTE | 2018-11-08 14:17 | QN ---
Documentation Comment SEEN AND EXAMINED DC SUMMARY DC TO COURTNEY URBINA MD Nov 08, 2018 14:17
[2018-11-08 14:44] VITALS: BP 155/85; PULSE 92; RESP 18
[2018-11-08 14:46] VITALS: BP 118/76; PULSE 93; RESP 18
--- NOTE | 2018-11-08 21:05 | DS ---
DATE OF ADMISSION: 11/03/2018 DATE OF DISCHARGE: 11/08/2018 HISTORY OF PRESENTING ILLNESS AND HOSPITAL COURSE: The patient was brought in from home with general ized weakness for a month worsening for past 1 month, a 63-year-old with past medical history of schi zophrenia, chronic ambulatory dysfunction and hypertension, who lives with his mother. According to the mother, the patient has been complaining of spasm and weakness of the left arm and lately has bee n feeling falling a lot. The minute he gets up, he falls. Mother has been helping his household cho res. The patient had no headache and no dizziness, sometimes neck pain and was brought to the emerge ncy department for further evaluation. On admission, vital signs were stable. EKG showed normal sin us rhythm. CT of the head was negative for any mass, shift or bleed. The patient had a C-spine CT t hat showed no acute fracture, multilevel degenerative disk disease ____ C5 to C6, C6 to C7 multilevel disk osteophyte complexes, multilevel uncovertebral joint spurring arthropathy bilaterally, severe r ight C5 to C6 and moderate to severe left C6 to C7. The patient also had a carotid Doppler that show ed no evidence of hemodynamically significant stenosis. The patient was seen by neurosurgery, [facility] with Dr. Khalil. The patient is quadriparetic with high-grade cervical stenosis, decompressi ve laminectomy was indicated. The patient went for laminectomy with Dr. Khalil on 11/05/2018 had C3 through C7 laminectomy for decompression. Postop, the patient was feeling better. The patient also had thoracic spine MRI. The thoracic spine MRI showed no acute fracture or cord signal abnormality. The patient also had lumbar spine MRI that showed straightening of the normal lumbar lordosis, mult ilevel broad-based disk osteophyte complexes L2 to L3 through L5 to S1 levels with severe central can al stenosis at L5 to S1. The patient was seen by Dr. Jordy Nur, who was covering for Dr. Khalil. According to him, he can evaluate lumbar spine when recovered from cervical operation. The patient was seen by physical therapy and was making good progress. I spoke to the family at bedside and cur rently, the patient is being transferred to rehab for further care for rehabilitation. The patient w as also seen by psych consultation during the hospitalization stay and their recommendations were fol lowed. FINAL DISCHARGE DIAGNOSES: 1. C3 to C7 cervical stenosis status post decompressive laminectomy. 2. Multilevel broad based disk osteophyte complexes L2 to L3 through L5 to S1 with moderate canal st enosis at ____. 3. Arthritis. 5. History of schizophrenia. 6. Hypertension. 7. History of hyperlipidemia. DISCHARGE CONDITION: Stable. DISCHARGE DIET: A 2-gram sodium. DISCHARGE MEDICATIONS: 1. Colace for constipation. 2. Avis ____ p.r.n. pain. Continue medications: 1. Aspirin 81. 2. Atorvastatin 20. 3. Ibuprofen 600 mg p.o. q.6 p.r.n. pain. FOLLOWUP: The patient will be followed by Dr. Khalil in 1 to 2 weeks. The patient was instructed t o follow up with PCP in 1 to 2 weeks. Dictated By: CORUTNEY MCCARTHY/KAIN Conf#: [id number] DID#: [id number] CC: KARI MEZA NP; DONNA MEDINA MD;*End*
== END 2018-11-08 19:55 | DRG 519 ==
LOC: E/R 21:36 → 2NE 11-01 02:46 → CANRESERV 11-01 12:59 → 2NE 11-01 19:52 → OBSVTOIN 11-03 08:36 → MS1 11-03 10:50
PROVIDERS: ADMIT Internal Medicine Nephrology; ATTEND Internal Medicine Nephrology
PROC: 00NW0ZZ Release Cervical Spinal Cord, Open Approach (ICD-10-PCS; principal; 2018-11-03 07:30)
DX: M47.12 Other spondylosis with myelopathy, cervical region (principal); E87.1 Hypo-osmolality and hyponatremia; F20.9 Schizophrenia, unspecified; I10 Essential (primary) hypertension; E78.5 Hyperlipidemia, unspecified; E87.6 Hypokalemia; R26.89 Other abnormalities of gait and mobility; R31.9 Hematuria, unspecified
CPT/HCPCS: 70450; 71045; 72020; 72125; 72141; 72146; 72148; 80048; 81001; 82550; 82553; 83735; 83935; 84100; 84300; 84484; 85025; 85610; 85730; 86850; 86900; 86901; 87086; 88304; 88311; 93005; 93306; 93880; 97110; 97116; 97162; 97164; 97167; 97530; 97535; C9113; G0378; J0690; J1170; J1650; J2060; J2250; J2370; J2405; J2710; J2765; J3010; J3475; J7030; J7040; L0174